=== PATIENT | male | born 1970 | race Caucasian/White ===

== ENCOUNTER 2020-11-27 11:20 | Emergency (ER) | payer SELFPAY ==
[2020-11-27] MEDS ORDERED: Sodium Chloride 0.9% 1,000 ML IV ONE (11:55)
[2020-11-27 12:39] LABS: BLOOD UREA NITROGEN,BUN 15 mg/dL (7.0-18.0); CARBON DIOXIDE,CO2 28.8 mmol/L (21.0-32.0); CHLORIDE,CL 96 mmol/L (98-107); GLUCOSE RANDOM 127 mg/dL (74-106); POTASSIUM,K 4.8 mmol/L (3.5-5.1); SODIUM,NA 135 mmol/L (136-148)
[2020-11-27] MEDS ORDERED: Iopamidol 755 MG/ML 500 ML Multipack Bottle IVPUSH STA (13:14)
--- NOTE | 2020-11-27 14:10 | CT ---
INDICATION: Hypoxia and tachycardia. Rule out pulmonary embolism. TECHNIQUE: Volumetric helical scanning of the thorax was performed during infusion of 100 cc of Isovue 370 contrast material IV, timing optimized for pulmonary arterial opacification. Coronal and sagittal reconstructions were obtained. COMPARISON: None. FINDINGS: The pulmonary arteries are less than optimally opacified. No central pulmonary arterial filling defect is identified. However, small peripheral emboli could go undetected. The heart size is normal. Bilateral ground-glass infiltrates, primarily in the periphery of the lungs, are demonstrated. No airway abnormality or pleural effusion is evident. There is no mediastinal or hilar lymphadenopathy. Images of the upper abdomen are unremarkable. IMPRESSION: 1. Suboptimal pulmonary arterial opacification. No central pulmonary embolus is identified. However, small peripheral emboli could go undetected. 2. Bilateral ground-glass infiltrates, primarily in the periphery of the lungs. The appearance is typical of COVID-19 pneumonia. Please note that all CT scans at this facility use dose modulation, iterative reconstruction, and/or weight-based dosing when appropriate to reduce radiation dose to as low as reasonably achievable. Dictated by Zion Jones MD @ 11/27/2020 2:09:05 PM (Electronically Signed)
--- NOTE | 2020-11-27 15:00 | EDM.PDOC ---
ED HPI GENERAL MEDICAL PROBLEM - General Chief Complaint: General Stated Complaint: FEVER LOW O2 FROM CLINIC Time Seen by Provider: 11/27/20 11:22 Source of Information: Reports: Patient History Limitations: Reports: No Limitations - History of Present Illness INITIAL COMMENTS - FREE TEXT/NARRATIVE: HISTORY AND PHYSICAL: History of present illness: Patient is a 50-year-old male who presents emergency room today from the clinic for concern of generalized body aches, intermittent fevers, cough, and fatigue. Patient states he is also had a decrease in appetite. Patient states he originally went to the walk-in clinic and was sent here because his oxygens were on the lower end. Patient states that he has noticed some sort of shortness of breath if he standing or walking around but does not complain of shortness of breath today in the emergency room. Patient denies any health history. Patient states that he is on day 13 of symptoms and states that when he first started having symptoms, he did have a negative Covid test. Patient states that his symptoms have continued to worsen despite this. Denies any other symptoms or concerns. Patient denies chest pain, shortness of breath. Denies headache, neck stiff ness, change in vision, syncope, or near syncope. Denies nausea, vomiting, abdominal pain, diarrhea, constipation, or dysuria. Has not noted any blood in u rine or stool. Review of systems: As per history of present illness and below otherwise all systems reviewed and negative. Past medical history: As per history of present illness and as reviewed below otherwise noncontributory. Surgical history: As per history of present illness and as reviewed below otherwise noncontributory. Social history: See social history for further information Family history: As per history of present illness and as reviewed below otherwise noncontributory. Physical exam: General: Patient is alert, oriented, and in no acute distress. Patient sitting comfortably on exam table. Patient is hypoxic 87 to 88% on room air. Otherwise, vitally stable and reviewed by me. HEENT: Atraumatic, normocephalic, pupils equal and reactive bilaterally, negative for conjunctival pallor or scleral icterus, mucous membranes moist, neck supple, nontender, trachea midline. No drooling or trismus noted. No meningeal signs. No hot potato voice noted. Lungs: Clear to auscultation, breath sounds equal bilaterally, chest nontender. Patient speaking clearly without breathlessness, no wheezing or stridor, no accessory muscle use or respiratory distress. Heart: S1S2, regular rate and rhythm without overt murmur Abdomen: Soft, nondistended, nontender. Negative for masses or hepatosplenomegaly. Negative for costovertebral tenderness. Pelvis: Stable nontender. Genitourinary: Deferred. Rectal: Deferred. Skin: Intact, warm, dry. No lesions or rashes noted. Extremities: Atraumatic, negative for cords or calf pain. Neurovascular unremarkable. Neuro: Awake, alert, oriented. Cranial nerves II through XII unremarkable. Cerebellum unremarkable. Motor and sensory unremarkable throughout. Exam nonfocal. Notes: Patient is a 50-year-old male who presents emergency room today with concern of fatigue, generalized body aches, intermittent fevers, and cough x13 days. Upon arrival to the ED, patient is approximately 87 to 88% on room air but otherwise breathing comfortably on exam. Patient was placed on 2 L nasal cannula and satting about 94 to 95%. Will obtain COVID-19 testing, cardiac evaluation, and angiography chest for concern of possible pulmonary embolism. See Dr. Diaz's dictation for specific EKG interpretation. However STEMI. CBC mild derangements are unremarkable. CMP does show mild hyponatremia at 135, hypochloremia 96. Glucose mildly elevated at 127. Patient does have transaminitis with AST of 229 and ALT at 348 troponin negative. Otherwise CMP mild derangements unremarkable. COVID-19 is positive. Angiography of chest is suboptimal but no central pulmonary embolism identified. Bilateral groundglass infiltrates, primarily in the periphery of the lungs. The appearance typical of COVID-19 pneumonia. Upon reevaluation of patient, he remains vitally stable on 2 L nasal cannula and otherwise comfortable throughout stay in ED. Given patient's hypoxia in the setting of COVID-19 viral infection, I did offer patient admission [facility]. However, patient desires trial about patient home oxygen. A prescription was sent for home oxygen to [facility] and patient has received this. Discussed with patient the importance of close monitoring of his oxygen at home with a pulse oximeter. Patient is out of the window to be able to receive IV monoclonal antibodies given he is on day 13 of infection. I did discuss with patient that given the hypoxia and COVID-19 infection, if he would be admitted to the hospital, he could have remdesivir consideration. However, he does not desire this medication at this time. Strict return precautions thoroughly discussed with patient. Discussed importance for follow-up with a primary care provider following COVID-19 quarantine restrictions. Voices understanding and is agreeable to plan of care. Denies any further questions or concerns at this time. Diagnostics: EKG, CBC, CMP, Trop, Ang CT chest, COVID, Ang CT Chest Therapeutics: 2LNC, NS Prescription: Home O2 Impression: COVID-19 viral infection with hypoxia Plan: 1. Your COVID-19 screening is positive. That means you do have the coronavirus and are considered contagious. Your oxygen is low today at 88% on room air. You have been offered admission to the hospital for oxygen but preferred to go home with at home oxygen. I would like you to purchase a pulse oximiter from the local store, [employer] or from the pharmacy to closely monitor your oxygen. I would like you to start at 2 liters of oxygen and closely monitor your oxygen as discussed and as shown when in the ED today. 2. Continue to monitor for trouble breathing, new confusion or inability to arouse, bluish lips or face or any of the other symptoms we discussed -if this occurs please return to the emergency room.Continue to monitor your health at [facility] for worsening symptoms so that you can be taken care of and treated quickly if needed. 3. Please self quarantine until 10 days have passed since your symptoms began AND you are fever free (<100.4 degrees fahrenheit) for 24 hours without the use of fever-reducing medications AND symptoms are improving. You should restrict activities outside of your home, except for getting medical care. Do not go to work, school, or public areas. Avoid using public transportation, ride-sharing, or taxis. Inform any persons that you have been in contact with since you started becoming symptomatic that you have tested positive; they should be made aware and take the appropriate steps as needed. 4. You may alternate Tylenol and ibuprofen as needed for pain and fever management. [facility]. [facility] calling you and following up with you. The [place] COVID 19 Hotline phone number , They are open Thursday - Thursday 7am - 7pm. Follow up with your primary care provider for re-evaluation and re-testing after quarantine and discuss when you should be seen. 6. For more specific guidelines regarding isolation/quarantine please visit this website. https://www.health.[place].gov/sites/w ww/files/documents/Files/EZEKIEL/coronavirus/Factsheet_for_People_With_COVID-19.pdf When you are discharged from the ED. Go straight to [employer] to receive oxygen supplies as discussed. Definitive disposition and diagnosis as appropriate pending reevaluation and review of above. - Related Data Allergies Allergy/AdvReac Type Severity Reaction Status Date / Time Pertussis Vaccines Allergy Anaphylactic Verified 11/27/20 11:41 Shock Home Meds: Home Meds . [No Known Home Meds] 11/27/20 [History] Past Medical History - Past Health History Medical/Surgical History: Denies Medical/Surgical History - Infectious Disease History Infectious Disease History: Reports: None Social & Family History - Family History Family Medical History: No Pertinent Family History - Tobacco Use Tobacco Use Status *Q: Never Tobacco User - Recreational Drug Use Recreational Drug Use: No ED ROS GENERAL - Review of Systems Review Of Systems: Comprehensive ROS is negative, except as noted in HPI. ED EXAM, GENERAL - Physical Exam Exam: See Below (see dictation) Course - Vital Signs Last Recorded V/S: Last Vital Signs Temp 99.8 F 11/27/20 11:37 Pulse 86 11/27/20 14:29 Resp 24 H 11/27/20 11:37 BP 154/93 H 11/27/20 14:29 Pulse Ox 98 11/27/20 14:29 - Orders/Labs/Meds Orders: Active Orders 24 hr Category Date Time Status Cardiac Monitoring [RC] . DIRECTED Care 11/27/20 11:55 Active Labs: Laboratory Tests 11/27/20 11/27/20 11/27/20 Range/Units 11:40 11:40 13:06 WBC 6.76 (4.0-11.0) K/uL RBC 4.84 (4.50-5.90) M/uL Hgb 14.4 (13.0-17.0) g/dL Hct 42.3 (38.0-50.0) % MCV 87.4 (80.0-98.0) fL MCH 29.8 (27.0-32.0) pg MCHC 34.0 (31.0-37.0) g/dL RDW Std Deviation 40.8 (28.0-62.0) fl RDW Coeff of Dante 13 (11.0-15.0) % Plt Count 316 (150-400) K/uL MPV 10.80 (7.40-12.00) fL Neut % (Auto) 82.2 H (48.0-80.0) % Lymph % (Auto) 7.8 L (16.0-40.0) % [place] % (Auto) 9.8 (0.0-15.0) % Eos % (Auto) 0.1 (0.0-7.0) % Baso % (Auto) 0.1 (0.0-1.5) % Neut # (Auto) 5.6 (1.4-5.7) K/uL Lymph # (Auto) 0.5 L (0.6-2.4) K/uL [place] # (Auto) 0.7 (0.0-0.8) K/uL Eos # (Auto) 0.0 (0.0-0.7) K/uL Baso # (Auto) 0.0 (0.0-0.1) K/uL Sodium 135 L (136-148) mmol/L Potassium 4.8 (3.5-5.1) mmol/L Chloride 96 L (98-107) mmol/L Carbon Dioxide 28.8 (21.0-32.0) mmol/L BUN 15 (7.0-18.0) mg/dL Creatinine 0.9 (0.8-1.3) mg/dL Est Cr Clr Drug Dosing 103.42 mL/min Estimated GFR (MDRD) > 60.0 ml/min Glucose 127 H (74-106) mg/dL Calcium 8.7 (8.5-10.1) mg/dL Total Bilirubin 0.7 (0.2-1.0) mg/dL AST 229 H (15-37) IU/L ALT 348 H (14-63) IU/L Alkaline Phosphatase 94 (46-116) U/L Troponin I < 0.050 (0.000-0.056) ng/mL Total Protein 6.9 (6.4-8.2) g/dL Albumin 2.7 L (3.4-5.0) g/dL Globulin 4.2 H (2.6-4.0) g/dL Albumin/Globulin Ratio 0.6 L (0.9-1.6) SARS-CoV-2 RNA (KARINA) POSITIVE H (NEGATIVE) Meds: Medications Discontinued Medications Generic Name Dose Route Start Last Admin Trade Name Nicolette PRN Reason Stop Dose Admin Sodium Chloride 1,000 mls @ 999 mls/hr 11/27/20 11:55 11/27/20 12:39 Normal Saline IV 11/27/20 12:55 999 mls/hr BOLUS ONE Administration Iopamidol 100 ml 11/27/20 13:14 11/27/20 13:14 Iopamidol 755 Mg/Ml 500 Ml Multipack Bottle IVPUSH 11/27/20 13:15 100 ml ONETIME STA Administration Departure - Departure Time of Disposition: 14:57 Disposition: Home, Self-Care 01 Clinical Impression: COVID-19 virus infection, Hypoxia - Discharge Information Instructions: Hypoxia, COVID-19 Frequently Asked Questions, COVID-19 Vaccine Information, COVID-19: How to Protect Yourself and Others - CDC, COVID-19: Quarantine vs. Isolation - [facility] (02/02/2020), COVID-19: What to Do If You Are Sick- [facility] (05/02/2020) Referrals: PCP,None [Primary Care Provider] - Forms: ED Department Discharge Additional Instructions: The following information is given to patients seen in the emergency department who are being discharged to home. This information is to outline your options for follow-up care. We provide all patients seen in our emergency department with a follow-up referral. The need for follow-up, as well as the timing and circumstances, are variable depending upon the specifics of your emergency department visit. If you don't have a primary care physician on staff, we will provide you with a referral. We always advise you to contact your personal physician following an emergency department visit to inform them of the circumstance of the visit and for follow-up with them and/or the need for any referrals to a consulting specialist. The emergency department will also refer you to a specialist when appropriate. This referral assures that you have the opportunity for follow-up care with a specialist. All of these measure are taken in an effort to provide you with optimal care, which includes your follow-up. Under all circumstances we always encourage you to contact your private physician who remains a resource for coordinating your care. When calling for follow-up care, please make the office aware that this follow-up is from your recent emergency room visit. If for any reason you are refused follow-up, please contact the [facility] Emergency Department at and asked to speak to the emergency department charge nurse. [facility] [address], [place] [address] [facility] [address] [place] [address] 1. Your COVID-19 screening is positive. That means you do have the coronavirus and are considered contagious. Your oxygen is low today at 88% on room air. You have been offered admission to the hospital for oxygen but preferred to go home with at home oxygen. I would like you to purchase a pulse oximiter from the local store, [employer]), or from the pharmacy to closely monitor your oxygen. I would like you to start at 2 liters of oxygen and closely monitor your oxygen as discussed and as shown when in the ED today. 2. Continue to monitor for trouble breathing, new confusion or inability to arouse, bluish lips or face or any of the other symptoms we discussed -if this occurs please return to the emergency room.Continue to monitor your health at home for worsening symptoms so that you can be taken care of and treated quickly if needed. 3. Please self quarantine until 10 days have passed since your symptoms began AND you are fever free (<100.4 degrees fahrenheit) for 24 hours without the use of fever-reducing medications AND symptoms are improving. You should restrict activities outside of your home, except for getting medical care. Do not go to work, school, or public areas. Avoid using public transportation, ride-sharing, or taxis. Inform any persons that you have been in contact with since you started becoming symptomatic that you have tested positive; they should be made aware and take the appropriate steps as needed. 4. You may alternate Tylenol and ibuprofen as needed for pain and fever management. 5. The state health department will be calling you and following up with you. The [place] COVID 19 Hotline phone number , They are open Thursday - Thursday 7am - 7pm. Follow up with your primary care provider for re-evaluation and re-testing after quarantine and discuss when you should be seen. 6. For more specific guidelines regarding isolation/quarantine please visit this website. https://www.[facility].[place].gov/sites/www/files/documents/Files/EZEKIEL/coronavirus/Factsheet_for_People_Wi _COVID-19.pdf When you are discharged from the ED. Go straight to [employer] to receive oxygen supplies as discussed. Sepsis Event Note (ED) - Focused Exam Vital Signs: Vital Signs Temp Pulse Resp BP Pulse Ox 11/27/20 14:29 86 154/93 H 98 11/27/20 11:37 99.8 F 102 H 24 H 134/84 95 - My Orders Last 24 Hours: My Active Orders 11/27/20 11:55 Cardiac Monitoring [RC] . DIRECTED - Assessment/Plan Last 24 Hours: My Active Orders 11/27/20 11:55 Cardiac Monitoring [RC] . DIRECTED
--- NOTE | 2020-11-27 16:23 | PCM.EKG ---
#1 Interpretation EKG Date: 11/27/20 Time: 12:52 Rhythm: NSR Rate (Beats/Min): 89 [place]: LAD-Left [place] Deviation P-Wave: Present QRS: Normal ST-T: Normal QT: Normal Comparison: NA - No Prior EKG EKG Interpretation Comments: Sinus Rhythm
== END 2020-11-27 16:50 | disposition home or self-care (01) ==
LOC: MW.ED 11:20
DX: U07.1 COVID-19 (principal); R09.02 Hypoxemia; Z88.7 Allergy status to serum and vaccine
CPT/HCPCS: 36415; 71275; 80053; 84484; 85025; 87635; 93005; 99285; J7030; Q9967; U0002

== ENCOUNTER 2020-12-01 18:50 | Emergency (ER) | payer SELFPAY ==
--- NOTE | 2020-12-01 19:31 | EDM.PDOC ---
ED HPI GENERAL MEDICAL PROBLEM - General Chief Complaint: Lower Extremity Injury/Pain Stated Complaint: POSSIBLE BLOOD CLOT LT LEG Time Seen by Provider: 12/01/20 19:14 - History of Present Illness INITIAL COMMENTS - FREE TEXT/NARRATIVE: HISTORY AND PHYSICAL: History of present illness: This a 50-year-old gentleman with a recent diagnosis of Covid with symptoms starting approximately 2 weeks ago who is currently on home oxygen for his coronavirus infection who presents ER today secondary to discomfort and swelling to his left lower extremity with discomfort to his calf. Patient denies any recent fevers, shakes, chills, nausea, vomiting, diarrhea, dysuria, frequency, urgency, chest pain or worsening shortness of breath. Patient denies any recent trauma. Patient reports that he has been somewhat sedentary ever since his diagnosis of coronavirus secondary to his shortness of breath. Patient denies any history of DVT or PE in the past. Review of systems: As per history of present illness and below otherwise all systems reviewed and negative. Past medical history: As per history of present illness and as reviewed below otherwise noncontributory. Surgical history: As per history of present illness and as reviewed below otherwise noncontributory. Social history: No reported history of drug abuse. Family history: As per history of present illness and as reviewed below otherwise noncontributory. Physical exam: This patient was seen and evaluated during the 2019 SARS-CoV-2 novel coronavirus pandemic period. Community viral transmission is ongoing at time of this encounter and the emergency department is operating under pandemic response procedures. Constitutional: Patient is oriented to person, place, and time. Appears well- developed and well-nourished. No distress. HEENT: Moist mucous membranes Head: Normocephalic and atraumatic Eyes: Right eye exhibits no discharge. Left eye exhibits no discharge. No scleral icterus Neck: Normal range of motion. No tracheal deviation present. Cardiovascular: Normal rate and regular rhythm. Pulmonary: Effort normal, no respiratory distress. Abdominal: No distention Musculoskeletal: Normal range of motion Neurologic: Alert and oriented to person, place and time. Skin: [place], warm and dry. Psychiatric: Normal mood and affect. Behavior is normal. Judgment and thought content normal. Nursing note and vital signs have been reviewed Patient's ER physical exam is significant for tenderness to palpation to his left calf as well as slight increase in swelling to his left calf compared to his right calf. Patient has good distal pulses with good capillary refill that are bilaterally equal. Diagnostics: Duplex ultrasound: Left lower extremity: Deep venous thrombosis extending through the posterior tibial vein in the calf superiorly to reach the mid femoral vein. Case was discussed with radiology. He reports that the patient has a complete occlusion of the posterior tibial vein in the calf and a nonocclusive clot in the popliteal to the mid superior femoral vein. Therapeutics: Xarelto 15 mg p.o. twice daily x3 weeks followed by 20 mg p.o. daily. Assessment and plan: There is a 50-year-old gentleman with a history significant for coronavirus who presents ER today secondary to pain and swelling to his left calf. Patient will have an ultrasound performed to rule out a DVT. Ultrasound reveals that the patient does have DVT that will be treated in the ED. Patient denies any rectal bleeding, melena, hematemesis, bleeding dyscrasias, bleeding from his gums. Patient's labs were reviewed from 3 days ago and he had does have a normal renal function. Patient does not have a primary care physician. Patient be referred to our residency clinic for evaluation of his Covid as well as his DVT. Patient was seen and evaluated here in the ED on Thursday and was discharged home with a diagnosis of Covid on home oxygen. Patient reports that has been doing well on home oxygen but has not had a primary care physician to assist him with weaning off or further management of his coronavirus. At this time, the patient also has developed a DVT which is likely secondary to coronavirus infection. Patient be placed on Xarelto 15 mg twice a day and a prescription has been sent for 3 weeks worse. Patient will need to make an appointment to see a primary care physician for further management of his DVT. We will send information to our clinic to assist with getting follow-up. Patient had CTA during his prior ER visit which revealed no evidence of pulmonary embolism. Definitive disposition and diagnosis as appropriate pending reevaluation and review of above. Left Lower Leg Pain Score (Numeric/FACES): 6 - Related Data Allergies Allergy/AdvReac Type Severity Reaction Status Date / Time Pertussis Vaccines Allergy Anaphylactic Verified 11/27/20 11:41 Shock Home Meds: Home Meds Rivaroxaban [Xarelto] 15 mg PO BID #42 tab 12/01/20 [Rx] Past Medical History - Past Health History Medical/Surgical History: Denies Medical/Surgical History - Infectious Disease History Infectious Disease History: Reports: None Social & Family History - Family History Family Medical History: No Pertinent Family History - Tobacco Use Tobacco Use Status *Q: Never Tobacco User Second Hand Smoke Exposure: No - Caffeine Use Caffeine Use: Reports: None - Recreational Drug Use Recreational Drug Use: No Review of Systems - Review of Systems Review Of Systems: See Below ED EXAM, GENERAL - Physical Exam Exam: See Below Course - Vital Signs Last Recorded V/S: Last Vital Signs Temp 98.5 F 12/01/20 19:14 Pulse 112 H 12/01/20 19:14 Resp 20 12/01/20 19:14 BP 105/75 12/01/20 19:14 Pulse Ox 95 12/01/20 19:14 - Orders/Labs/Meds Meds: Medications Discontinued Medications Generic Name Dose Route Start Last Admin Trade Name Freq PRN Reason Stop Dose Admin Rivaroxaban 15 mg 12/01/20 21:43 Rivaroxaban 15 Mg Tab PO 12/01/20 21:44 WITHDINNER STA Departure - Departure Time of Disposition: 22:09 Disposition: Home, Self-Care 01 Condition: Good Clinical Impression: COVID-19 virus infection DVT (deep venous thrombosis) Qualifiers: DVT location: lower extremity Affected thrombotic vein of extremity: femoral Chronicity: acute Laterality: left Qualified Code(s): I82.412 - Acute embolism and thrombosis of left femoral vein - Discharge Information Prescriptions: Rivaroxaban [Xarelto] 15 mg PO BID #42 tab Instructions: 10 Things You Can Do to Manage Your COVID-19 Symptoms at Home - [facility] (08/31/2020), Deep Vein Thrombosis, Rivaroxaban oral tablets Referrals: PCP,None [Primary Care Provider] - Forms: ED Department Discharge Additional Instructions: You were seen and evaluated in the ER today secondary swelling to your left leg. The ultrasound today did reveal that he had a blood clot in your tibial vein, popliteal vein, and mid superior femoral vein. You will be started on Xarelto which is a blood thinner. This will be 15 mg twice a day for 3 weeks. You will need to see a primary care physician so that they can continue your therapy and decide the duration that you will need. After the 3-week course you will need to be placed on 20 mg daily but this will need to be prescribed by your primary care physician. Please call the number below to make an appointment to see primary care physician. We will send your information to the clinic so that they will be expecting your phone call. The following information is given to patients seen in the emergency department who are being discharged to home. This information is to outline your options for follow-up care. We provide all patients seen in our emergency department with a follow-up referral. The need for follow-up, as well as the timing and circumstances, are variable depending upon the specifics of your emergency department visit. If you don't have a primary care physician on staff, we will provide you with a referral. We always advise you to contact your personal physician following an emergency department visit to inform them of the circumstance of the visit and for follow-up with them and/or the need for any referrals to a consulting specialist. The emergency department will also refer you to a specialist when appropriate. This referral assures that you have the opportunity for follow-up care with a specialist. All of these measure are taken in an effort to provide you with optimal care, which includes your follow-up. Under all circumstances we always encourage you to contact your private physician who remains a resource for coordinating your care. When calling for follow-up care, please make the office aware that this follow-up is from your recent emergency room visit. If for any reason you are refused follow-up, please contact the [facility] Emergency Department at and asked to speak to the emergency department charge nurse. [facility] [address] [place] [id number] [facility] [address] [place] [id number] Sepsis Event Note (ED) - Focused Exam Vital Signs: Vital Signs Temp Pulse Resp BP Pulse Ox 12/01/20 19:14 98.5 F 112 H 20 105/75 95
--- NOTE | 2020-12-01 21:42 | US ---
INDICATION: Left calf pain. COMPARISON: None available. FINDINGS: Ultrasound of the venous drainage of the left lower extremity was performed using real-time menjivar scale imaging (B mode 2D), color flow Doppler and spectral analysis. There is partially occlusive thrombus from the mid superior left femoral vein through the left popliteal vein. There is occlusive thrombus throughout the posterior tibial vein in the calf. There is no evidence of deep venous thrombosis more superiorly. There is normal antegrade flow from the superior femoral vein and the common femoral vein. There is normal augmentation and compressibility of these veins. IMPRESSION: Deep venous thrombosis extending through the posterior tibial vein in the calf superiorly to reach the mid femoral vein. The thrombus in the calf is occlusive while rest of the thrombus is nonocclusive. Dictated by Kingsley Chairez MD @ 12/01/2020 9:41:26 PM (Electronically Signed)
[2020-12-01] MEDS ORDERED: Rivaroxaban 15 MG Tab PO STA (21:43)
== END 2020-12-01 22:34 | disposition home or self-care (01) ==
LOC: MW.ED 18:50
DX: U07.1 COVID-19 (principal); I82.412 Acute embolism and thrombosis of left femoral vein; Z88.7 Allergy status to serum and vaccine; Z79.01 Long term (current) use of anticoagulants
CPT/HCPCS: 93971; 99283; A9270

== ENCOUNTER 2020-12-09 09:41 | Inpatient (IN) | payer SELFPAY ==
[2020-12-09] MEDS ORDERED: Sodium Chloride 0.9% 10 ML Syringe FLUSH PRN (10:15)
[2020-12-09] MEDS ORDERED: Sodium Chloride 0.9% 2.5 ML Syringe FLUSH PRN (10:15)
--- NOTE | 2020-12-09 10:20 | EDM.PDOC ---
ED HPI GENERAL MEDICAL PROBLEM - General Chief Complaint: General Stated Complaint: UNRESPONSIVE Time Seen by Provider: 12/09/20 10:03 - History of Present Illness INITIAL COMMENTS - FREE TEXT/NARRATIVE: 50-year-old male presents to the emergency department after near syncopal episode. Patient is sick with Covid on home oxygen at 3 L. He states he has been feeling better. He was at [employer] off oxygen was singing and sitting down and felt lightheaded. His significant other stated that he was somewhat unresponsive but still conscious. There is some questionable minor jerking of the head but not the rest of the body. No history of seizures. Patient also has blood clots in his legs and is taking Xarelto. There is no chest pain or worsening shortness of breath. Fevers have since abated. No exacerbating relieving factors otherwise. Patient vomited once and then felt better afterwards. - Related Data Allergies Allergy/AdvReac Type Severity Reaction Status Date / Time Pertussis Vaccines Allergy Anaphylactic Verified 12/09/20 10:06 Shock Home Meds: Home Meds Rivaroxaban [Xarelto] 15 mg PO BID #42 tab 12/01/20 [Rx] Cyproheptadine HCl 4 mg PO 12/09/20 [History] Hydroxychloroquine [Plaquenil] 200 mg PO 12/09/20 [History] Ivermectin 12/09/20 [History] fluvoxaMINE Maleate [Fluvoxamine Maleate] 50 mg PO 12/09/20 [History] predniSONE [Prednisone] 10 mg PO 12/09/20 [History] Past Medical History - Past Health History Medical/Surgical History: Denies Medical/Surgical History HEENT History: Reports: Impaired Vision Respiratory History: Reports: Other (See Below) Other Respiratory History: covid - Infectious Disease History Infectious Disease History: Reports: None Social & Family History - Family History Family Medical History: No Pertinent Family History - Caffeine Use Caffeine Use: Reports: None ED ROS GENERAL - Review of Systems Review Of Systems: Comprehensive ROS is negative, except as noted in HPI. ED EXAM, GENERAL - Physical Exam Exam: See Below Free Text/Narrative:: CONSTITUTIONAL: well appearing in no acute distress SKIN: Warm, dry, and intact without rash HENT: Normocephalic, atraumatic, PULMONARY: clear to ausculation bilaterally. No rales, rhonchi, wheezing CARDIOVASCULAR: regular rate, No murmur, rubs, or gallops GASTROINTESTINAL: soft, nondistended, nontender NEUROLOGIC: normal speech, II-XII intact. light touch/5/5 power equal and symmetric in upper and lower extremities without deficit MUSCULOSKELETAL: no gross deformities, atraumatic PSYCHIATRIC: normal mood and affect #1 Interpretation EKG Date: 12/09/20 Time: 10:18 EKG Interpretation Comments: 95, normal sinus rhythm, no definitive delta wave. The NV interval is normal. Patient does have a slightly prolonged QTc interval that is borderline at 494. Otherwise nonspecific ST/T findings. Course - Vital Signs Text/Narrative:: Differential diagnosis: Dysrhythmia, dehydration, anemia, PE, seizure, stroke, other Patient presents to the emergency department as outlined above. Patient has extensive bilateral pulmonary emboli. I spoke to interventional radiologist, Dr. Hunter, that I discussed the case with. He was able to review the images and we discussed the hemodynamics and troponin levels and radiographic findings of possible right heart strain and he stated that the patient would not be a interventional candidate at this time and recommends admission here for heparinization overnight in the ICU in addition the patient also had some minor QT prolongation is taking hydroxychloroquine and quercetin which could be possible contributing factors. Patient will be admitted and switched over to heparin as it is unclear without the patient broke through Xarelto or of the blood clots embolized from the legs to the lungs with overnight monitoring, reevaluation of medication regimen and continued treatment and management the setting of his Covid. Patient did take 30 mg of prednisone today and I discussed the hospitalist he can add additional steroids if he chooses. Last Recorded V/S: Last Vital Signs Temp 35.6 C L 12/09/20 09:46 Pulse 89 12/09/20 12:46 Resp 16 12/09/20 12:46 BP 108/78 12/09/20 12:46 Pulse Ox 98 12/09/20 12:46 - Orders/Labs/Meds Orders: Active Orders 24 hr Category Date Time Status Admission Status [Patient Status] [ADT] Stat ADT 12/09/20 12:48 Active Cardiac Monitoring [RC] . DIRECTED Care 12/09/20 10:15 Active Oxygen Therapy [RC] PRN Care 12/09/20 12:28 Active Pulse Oximetry [RC] ASDIRECTED Care 12/09/20 10:15 Active VTE/DVT Education [RC] PER UNIT ROUTINE Care 12/09/20 12:28 Active STREP A BY PCR [MOLEC] Stat Lab 12/09/20 13:01 Ordered Heparin Sodium/0.45% NaCl [Heparin 25,000 Units in 1/2 Med 12/09/20 12:30 Active NS 500 ML] 500 ml IV TITRATE Sodium Chloride 0.9% [Saline Flush] Med 12/09/20 10:15 Active 10 ml FLUSH ASDIRECTED PRN Sodium Chloride 0.9% [Saline Flush] Med 12/09/20 10:15 Active 2.5 ml FLUSH ASDIRECTED PRN Saline Lock Insert [OM.PC] Stat Oth 12/09/20 10:15 Ordered Medication Orders Heparin Sodium/Sodium Chloride (Heparin 25,000 Units In 1/2 Ns 500 Ml) 500 mls @ 38.16 mls/hr IV TITRATE ETHAN; Protocol Sodium Chloride (Sodium Chloride 0.9% 10 Ml Syringe) 10 ml FLUSH ASDIRECTED PRN PRN Reason: Keep Vein Open Last Admin: 12/09/20 11:33 Dose: 10 ml Documented by: LAVELL Sodium Chloride (Sodium Chloride 0.9% 2.5 Ml Syringe) 2.5 ml FLUSH ASDIRECTED PRN PRN Reason: Keep Vein Open Last Admin: 12/09/20 11:33 Dose: 2.5 ml Documented by: LAVELL Labs: Laboratory Tests 12/09/20 12/09/20 12/09/20 Range/Units 10:00 10:00 10:00 WBC 12.69 H (4.0-11.0) K/uL RBC 4.97 (4.50-5.90) M/uL Hgb 14.7 (13.0-17.0) g/dL Hct 44.0 (38.0-50.0) % MCV 88.5 (80.0-98.0) fL MCH 29.6 (27.0-32.0) pg MCHC 33.4 (31.0-37.0) g/dL RDW Std Deviation 42.2 (28.0-62.0) fl RDW Coeff of Dante 13 (11.0-15.0) % Plt Count 343 (150-400) K/uL MPV 10.30 (7.40-12.00) fL Neut % (Auto) 79.6 (48.0-80.0) % Lymph % (Auto) 13.4 L (16.0-40.0) % [place]once % (Auto) 5.7 (0.0-15.0) % Eos % (Auto) 0.9 (0.0-7.0) % Baso % (Auto) 0.4 (0.0-1.5) % Neut # (Auto) 10.1 H (1.4-5.7) K/uL Lymph # (Auto) 1.7 (0.6-2.4) K/uL Ponce # (Auto) 0.7 (0.0-0.8) K/uL Eos # (Auto) 0.1 (0.0-0.7) K/uL Baso # (Auto) 0.1 (0.0-0.1) K/uL Nucleated RBC % 0.0 /100WBC Nucleated RBCs # 0 K/uL INR 1.40 APTT (18.6-31.3) SEC Sodium 140 (136-148) mmol/L Potassium 3.9 (3.5-5.1) mmol/L Chloride 100 (98-107) mmol/L Carbon Dioxide 31.7 (21.0-32.0) mmol/L BUN 21 H (7.0-18.0) mg/dL Creatinine 1.0 (0.8-1.3) mg/dL Est Cr Clr Drug Dosing 93.08 mL/min Estimated GFR (MDRD) > 60.0 ml/min Glucose 192 H (74-106) mg/dL Calcium 8.9 (8.5-10.1) mg/dL Magnesium 2.6 H (1.8-2.4) mg/dL Total Bilirubin 0.4 (0.2-1.0) mg/dL AST 18 (15-37) IU/L ALT 108 H (14-63) IU/L Alkaline Phosphatase 64 (46-116) U/L Troponin I < 0.050 (0.000-0.056) ng/mL Total Protein 7.1 (6.4-8.2) g/dL Albumin 2.8 L (3.4-5.0) g/dL Globulin 4.3 H (2.6-4.0) g/dL Albumin/Globulin Ratio 0.7 L (0.9-1.6) Urine Color Urine Appearance Urine pH (5.0-8.0) Ur Specific [place] (1.001-1.035) Urine Protein (NEGATIVE) mg/dL Urine Glucose (UA) (NEGATIVE) mg/dL Urine Ketones (NEGATIVE) mg/dL Urine Occult Blood (NEGATIVE) Urine Nitrite (NEGATIVE) Urine Bilirubin (NEGATIVE) Urine Urobilinogen (<2.0) EU/dL Ur Leukocyte Esterase (NEGATIVE) 12/09/20 12/09/20 Range/Units 10:00 11:00 WBC (4.0-11.0) K/uL RBC (4.50-5.90) M/uL Hgb (13.0-17.0) g/dL Hct (38.0-50.0) % MCV (80.0-98.0) fL MCH (27.0-32.0) pg MCHC (31.0-37.0) g/dL RDW Std Deviation (28.0-62.0) fl RDW Coeff of Dante (11.0-15.0) % Plt Count (150-400) K/uL MPV (7.40-12.00) fL Neut % (Auto) (48.0-80.0) % Lymph % (Auto) (16.0-40.0) % [place] % (Auto) (0.0-15.0) % Eos % (Auto) (0.0-7.0) % Baso % (Auto) (0.0-1.5) % Neut # (Auto) (1.4-5.7) K/uL Lymph # (Auto) (0.6-2.4) K/uL [place] # (Auto) (0.0-0.8) K/uL Eos # (Auto) (0.0-0.7) K/uL Baso # (Auto) (0.0-0.1) K/uL Nucleated RBC % /100WBC Nucleated RBCs # K/uL INR APTT 38.5 H (18.6-31.3) SEC Sodium (136-148) mmol/L Potassium (3.5-5.1) mmol/L Chloride (98-107) mmol/L Carbon Dioxide (21.0-32.0) mmol/L BUN (7.0-18.0) mg/dL Creatinine (0.8-1.3) mg/dL Est Cr Clr Drug Dosing mL/min Estimated GFR (MDRD) ml/min Glucose (74-106) mg/dL Calcium (8.5-10.1) mg/dL Magnesium (1.8-2.4) mg/dL Total Bilirubin (0.2-1.0) mg/dL AST (15-37) IU/L ALT (14-63) IU/L Alkaline Phosphatase (46-116) U/L Troponin I (0.000-0.056) ng/mL Total Protein (6.4-8.2) g/dL Albumin (3.4-5.0) g/dL Globulin (2.6-4.0) g/dL Albumin/Globulin Ratio (0.9-1.6) Urine Color DARK YELLOW Urine Appearance CLEAR Urine pH 6.0 (5.0-8.0) Ur Specific [place] 1.025 (1.001-1.035) Urine Protein NEGATIVE (NEGATIVE) mg/dL Urine Glucose (UA) NEGATIVE (NEGATIVE) mg/dL Urine Ketones NEGATIVE (NEGATIVE) mg/dL Urine Occult Blood NEGATIVE (NEGATIVE) Urine Nitrite NEGATIVE (NEGATIVE) Urine Bilirubin NEGATIVE (NEGATIVE) Urine Urobilinogen 0.2 (<2.0) EU/dL Ur Leukocyte Esterase NEGATIVE (NEGATIVE) Meds: Medications Generic Name Dose Route Start Last Admin Trade Name Freq PRN Reason Stop Dose Admin Heparin Sodium/Sodium Chloride 500 mls @ 38.16 mls/hr 12/09/20 12:30 Heparin 25,000 Units In 1/2 Ns 500 Ml IV TITRATE ETHAN Protocol 18 UNITS/KG/HR Sodium Chloride 10 ml 12/09/20 10:15 12/09/20 11:33 Sodium Chloride 0.9% 10 Ml Syringe FLUSH 10 ml ASDIRECTED PRN Administration Keep Vein Open Sodium Chloride 2.5 ml 12/09/20 10:15 12/09/20 11:33 Sodium Chloride 0.9% 2.5 Ml Syringe FLUSH 2.5 ml ASDIRECTED PRN Administration Keep Vein Open Discontinued Medications Generic Name Dose Route Start Last Admin Trade Name Freq PRN Reason Stop Dose Admin Heparin Sodium (Porcine) 5,000 units 12/09/20 12:28 Heparin Sodium 5,000 Units/Ml Vial IVPUSH 12/09/20 12:29 .BOLUS ONE Iopamidol 100 ml 12/09/20 12:54 12/09/20 12:56 Iopamidol 755 Mg/Ml 500 Ml Multipack Bottle IVPUSH 12/09/20 12:55 100 ml ONETIME ONE Administration Departure - Departure Time of Disposition: 13:09 Disposition: Admitted As Inpatient 65 Condition: Fair Clinical Impression: COVID-19 virus infection, Pulmonary embolism - Discharge Information Referrals: Evelyne Loaiza MD [Primary Care Provider] - Forms: ED Department Discharge Sepsis Event Note (ED) - Evaluation Sepsis Screening Result: No Definite Risk - Focused Exam Vital Signs: Vital Signs Temp Pulse Resp BP Pulse Ox Pulse Ox 12/09/20 12:46 89 16 108/78 98 12/09/20 12:28 98 12/09/20 11:13 86 16 111/77 96 12/09/20 10:34 90 100/73 95 12/09/20 09:46 35.6 C L 96 17 110/70 92 L - My Orders Last 24 Hours: My Active Orders 12/09/20 10:15 Cardiac Monitoring [RC] . DIRECTED Pulse Oximetry [RC] ASDIRECTED Sodium Chloride 0.9% [Saline Flush] 10 ml FLUSH ASDIRECTED PRN Sodium Chloride 0.9% [Saline Flush] 2.5 ml FLUSH ASDIRECTED PRN Saline Lock Insert [OM.PC] Stat 12/09/20 12:28 Oxygen Therapy [RC] PRN VTE/DVT Education [RC] PER UNIT ROUTINE 12/09/20 12:30 Heparin Sodium/0.45% NaCl [Heparin 25,000 Units in 1/2 NS 500 ML] 500 ml IV TITRATE 12/09/20 12:48 Admission Status [Patient Status] [ADT] Stat 12/09/20 13:01 STREP A BY PCR [MOLEC] Stat - Assessment/Plan Last 24 Hours: My Active Orders 12/09/20 10:15 Cardiac Monitoring [RC] . DIRECTED Pulse Oximetry [RC] ASDIRECTED Sodium Chloride 0.9% [Saline Flush] 10 ml FLUSH ASDIRECTED PRN Sodium Chloride 0.9% [Saline Flush] 2.5 ml FLUSH ASDIRECTED PRN Saline Lock Insert [OM.PC] Stat 12/09/20 12:28 Oxygen Therapy [RC] PRN VTE/DVT Education [RC] PER UNIT ROUTINE 12/09/20 12:30 Heparin Sodium/0.45% NaCl [Heparin 25,000 Units in 1/2 NS 500 ML] 500 ml IV TITRATE 12/09/20 12:48 Admission Status [Patient Status] [ADT] Stat 12/09/20 13:01 STREP A BY PCR [MOLEC] Stat
[2020-12-09 10:36] LABS: BLOOD UREA NITROGEN,BUN 21 mg/dL (7.0-18.0); CARBON DIOXIDE,CO2 31.7 mmol/L (21.0-32.0); CHLORIDE,CL 100 mmol/L (98-107); GLUCOSE RANDOM 192 mg/dL (74-106); POTASSIUM,K 3.9 mmol/L (3.5-5.1); SODIUM,NA 140 mmol/L (136-148)
--- NOTE | 2020-12-09 11:56 | CT ---
INDICATION: Seizure. TECHNIQUE: Multiple axial images were obtained through the brain without contrast. Sagittal and coronal re-formatted images were obtained. COMPARISON: None. FINDINGS: The ventricles and sulci are within normal limits. There is no mass effect or midline shift. There is no intracranial hemorrhage. The menjivar-white matter differentiation is unremarkable. There is no fracture seen on bone windows. IMPRESSION: No acute intracranial abnormality. Please note that all CT scans at this facility use dose modulation, iterative reconstruction, and/or weight-based dosing when appropriate to reduce radiation dose to as low as reasonably achievable. Dictated by Zion George MD @ 12/09/2020 11:55:41 AM (Electronically Signed)
--- NOTE | 2020-12-09 12:14 | CT ---
INDICATION: Shortness of breath. TECHNIQUE: Multiple axial images were obtained from the apices to the diaphragm per the pulmonary artery embolism protocol after administration of 100 mL of Isovue-370 intravenously. Sagittal and coronal re-formatted images were obtained. COMPARISON: 11/27/2020. FINDINGS: There are continued bilateral airspace opacities slightly improved from the previous CT scan. There is no pleural effusion. There is no axillary, mediastinal or hilar adenopathy. There are new extensive bilateral pulmonary emboli seen. This is seen in the left pulmonary at the bifurcation of the left upper and lower lobe pulmonary arteries with emboli extending into the left lower lobe pulmonary arteries. There is also an embolism seen extending into a left upper lobe pulmonary artery. There is an embolism in the right lobe pulmonary artery extending into peripheral branches. There is also an embolism see in a right upper lobe pulmonary artery posteriorly. There is evidence of right heart strain with a right ventricle to left ventricle ratio measuring 1.04. There are degenerative changes in the spine. IMPRESSION: Extensive bilateral pulmonary artery emboli most pronounced in the lower lobe pulmonary arteries but are seen in upper lobe pulmonary arteries new from the previous CT scan. Evidence of right heart strain. Continued opacities in the lungs bilaterally which could be secondary to a COVID-19 infection. This is slightly improved from the previous study. Report was called to Dr. Holm on 12/09/2020 at 1206 hours. Please note that all CT scans at this facility use dose modulation, iterative reconstruction, and/or weight-based dosing when appropriate to reduce radiation dose to as low as reasonably achievable. Dictated by Zion George MD @ 12/09/2020 12:13:04 PM (Electronically Signed)
[2020-12-09] MEDS ORDERED: Heparin Sodium 5,000 Units/ML Vial IVPUSH ONE (12:28)
[2020-12-09] MEDS ORDERED: Iopamidol 755 MG/ML 500 ML Multipack Bottle IVPUSH ONE (12:54)
[2020-12-09] MEDS ORDERED: REMDESIVIR 200 MG in Sodium Chloride 0.9% 250 ML IV ONE (13:06)
[2020-12-09] MEDS: Heparin Sodium/0.45% NaCl 500 ML IV SCH (13:39)
[2020-12-09 13:53] LABS: BLOOD UREA NITROGEN,BUN 18 mg/dL (7.0-18.0); CARBON DIOXIDE,CO2 30.3 mmol/L (21.0-32.0); CHLORIDE,CL 100 mmol/L (98-107); GLUCOSE RANDOM 219 mg/dL (74-106); POTASSIUM,K 4.5 mmol/L (3.5-5.1); SODIUM,NA 138 mmol/L (136-148)
--- NOTE | 2020-12-09 14:07 | PCM.HP.2 ---
H&P History of Present Illness - General Date of Service: 12/09/20 Admit Problem/Dx: Admission Diagnosis/Problem Admission Diagnosis/Problem PE, Pulmonary embolism - History of Present Illness Initial Comments - Free Text/Narative: 50 yo male with pmh of COVID and left DVT. Patient developed COVID symptoms of cough, fevers, and fatigue on November 16. He was diagnosed with COVID on November 27 during an ER visit and had CT scan of chest reporting bilateral opacities and no PE. He was offered admission and treatment with remdsivir but patient declined and went home on oxygen. He developed left calf pain and was diagnosed with DVT on 12/02/11. He was started on Xarelto. From a doctor in [place] he got prescriptions for Ivermectin, hydroxychloroquine, cyproheptadine, prednisone, fluvoxamine and other supplements. Today at [facility] he became lighthead and slow to respond. He was off his oxygen and his sats were low. He was brought to the ED and was found to have extensive bilateral PEs on CT scan of chest. Bilateral opacities on CT chest appear to be improving compared to prior CT. Patient started on Heparin drip in ED and has again refused remdesivir. - Related Data Allergies/Adverse Reactions: Allergies Allergy/AdvReac Type Severity Reaction Status Date / Time Pertussis Vaccines Allergy Anaphylactic Verified 12/09/20 10:06 Shock Home Medications: Home Meds Rivaroxaban [Xarelto] 15 mg PO BID #42 tab 12/01/20 [Rx] Cyproheptadine HCl 4 mg PO 12/09/20 [History] Hydroxychloroquine [Plaquenil] 200 mg PO 12/09/20 [History] Ivermectin 12/09/20 [History] fluvoxaMINE Maleate [Fluvoxamine Maleate] 50 mg PO 12/09/20 [History] predniSONE [Prednisone] 10 mg PO 12/09/20 [History] Past Medical History - Past Health History Medical/Surgical History: Denies Medical/Surgical History HEENT History: Reports: Impaired Vision Respiratory History: Reports: Other (See Below) Other Respiratory History: covid Other Endocrine/Metabolic History: pt stated he is "borderline diabetic" and manages with diet - Infectious Disease History Infectious Disease History: Reports: None Social & Family History - Family History Family Medical History: No Pertinent Family History - Caffeine Use Caffeine Use: Reports: None H&P Review of Systems - Review of Systems: Review Of Systems: Comprehensive ROS is negative, except as noted in HPI. Exam - Exam Exam: See Below - Vital Signs Vital Signs: Last Vital Signs Temp 35.6 C L 12/09/20 09:46 Pulse 89 12/09/20 12:46 Resp 16 12/09/20 12:46 BP 108/78 12/09/20 12:46 Pulse Ox 98 12/09/20 12:46 Weight: 106 kg - Exam General: Alert, Oriented HEENT: Mucosa Moist & [place] Neck: Supple Lungs: Clear to Auscultation, Normal Respiratory Effort Cardiovascular: Regular Rate, Regular Rhythm GI/Abdominal Exam: Normal Bowel Sounds, Soft, Non-Tender Extremities: Non-Tender, No Pedal Edema Skin: Warm, Dry, Intact - Patient Data Lab Results Last 24 hrs: Laboratory Results - last 24 hr 12/09/20 12/09/20 12/09/20 Range/Units 10:00 10:00 10:00 WBC 12.69 H (4.0-11.0) K/uL RBC 4.97 (4.50-5.90) M/uL Hgb 14.7 (13.0-17.0) g/dL Hct 44.0 (38.0-50.0) % MCV 88.5 (80.0-98.0) fL MCH 29.6 (27.0-32.0) pg MCHC 33.4 (31.0-37.0) g/dL RDW Std Deviation 42.2 (28.0-62.0) fl RDW Coeff of Dante 13 (11.0-15.0) % Plt Count 343 (150-400) K/uL MPV 10.30 (7.40-12.00) fL Neut % (Auto) 79.6 (48.0-80.0) % Lymph % (Auto) 13.4 L (16.0-40.0) % Millard % (Auto) 5.7 (0.0-15.0) % Eos % (Auto) 0.9 (0.0-7.0) % Baso % (Auto) 0.4 (0.0-1.5) % Neut # (Auto) 10.1 H (1.4-5.7) K/uL Lymph # (Auto) 1.7 (0.6-2.4) K/uL Millard # (Auto) 0.7 (0.0-0.8) K/uL Eos # (Auto) 0.1 (0.0-0.7) K/uL Baso # (Auto) 0.1 (0.0-0.1) K/uL Nucleated RBC % 0.0 /100WBC Nucleated RBCs # 0 K/uL INR 1.40 APTT (18.6-31.3) SEC Sodium 140 (136-148) mmol/L Potassium 3.9 (3.5-5.1) mmol/L Chloride 100 (98-107) mmol/L Carbon Dioxide 31.7 (21.0-32.0) mmol/L BUN 21 H (7.0-18.0) mg/dL Creatinine 1.0 (0.8-1.3) mg/dL Est Cr Clr Drug Dosing 93.08 mL/min Estimated GFR (MDRD) > 60.0 ml/min Glucose 192 H (74-106) mg/dL Calcium 8.9 (8.5-10.1) mg/dL Magnesium 2.6 H (1.8-2.4) mg/dL Total Bilirubin 0.4 (0.2-1.0) mg/dL Direct Bilirubin (0.0-0.5) mg/dL AST 18 (15-37) IU/L ALT 108 H (14-63) IU/L Alkaline Phosphatase 64 (46-116) U/L Troponin I < 0.050 (0.000-0.056) ng/mL C-Reactive Protein (0.00-0.90) mg/dL Total Protein 7.1 (6.4-8.2) g/dL Albumin 2.8 L (3.4-5.0) g/dL Globulin 4.3 H (2.6-4.0) g/dL Albumin/Globulin Ratio 0.7 L (0.9-1.6) Urine Color Urine Appearance Urine pH (5.0-8.0) Ur Specific [place] (1.001-1.035) Urine Protein (NEGATIVE) mg/dL Urine Glucose (UA) (NEGATIVE) mg/dL Urine Ketones (NEGATIVE) mg/dL Urine Occult Blood (NEGATIVE) Urine Nitrite (NEGATIVE) Urine Bilirubin (NEGATIVE) Urine Urobilinogen (<2.0) EU/dL Ur Leukocyte Esterase (NEGATIVE) 12/09/20 12/09/20 12/09/20 Range/Units 10:00 11:00 13:19 WBC (4.0-11.0) K/uL RBC (4.50-5.90) M/uL Hgb (13.0-17.0) g/dL Hct (38.0-50.0) % MCV (80.0-98.0) fL MCH (27.0-32.0) pg MCHC (31.0-37.0) g/dL RDW Std Deviation (28.0-62.0) fl RDW Coeff of Dante (11.0-15.0) % Plt Count (150-400) K/uL MPV (7.40-12.00) fL Neut % (Auto) (48.0-80.0) % Lymph % (Auto) (16.0-40.0) % Millard % (Auto) (0.0-15.0) % Eos % (Auto) (0.0-7.0) % Baso % (Auto) (0.0-1.5) % Neut # (Auto) (1.4-5.7) K/uL Lymph # (Auto) (0.6-2.4) K/uL Millard # (Auto) (0.0-0.8) K/uL Eos # (Auto) (0.0-0.7) K/uL Baso # (Auto) (0.0-0.1) K/uL Nucleated RBC % /100WBC Nucleated RBCs # K/uL INR APTT 38.5 H (18.6-31.3) SEC Sodium 138 (136-148) mmol/L Potassium 4.5 (3.5-5.1) mmol/L Chloride 100 (98-107) mmol/L Carbon Dioxide 30.3 (21.0-32.0) mmol/L BUN 18 (7.0-18.0) mg/dL Creatinine 0.9 (0.8-1.3) mg/dL Est Cr Clr Drug Dosing 103.42 mL/min Estimated GFR (MDRD) > 60.0 ml/min Glucose 219 H (74-106) mg/dL Calcium 9.3 (8.5-10.1) mg/dL Magnesium (1.8-2.4) mg/dL Total Bilirubin 0.4 (0.2-1.0) mg/dL Direct Bilirubin 0.10 (0.0-0.5) mg/dL AST 24 (15-37) IU/L ALT 110 H (14-63) IU/L Alkaline Phosphatase 63 (46-116) U/L Troponin I (0.000-0.056) ng/mL C-Reactive Protein (0.00-0.90) mg/dL Total Protein 7.3 (6.4-8.2) g/dL Albumin 3.0 L (3.4-5.0) g/dL Globulin 4.3 H (2.6-4.0) g/dL Albumin/Globulin Ratio 0.7 L (0.9-1.6) Urine Color DARK YELLOW Urine Appearance CLEAR Urine pH 6.0 (5.0-8.0) Ur Specific [place] 1.025 (1.001-1.035) Urine Protein NEGATIVE (NEGATIVE) mg/dL Urine Glucose (UA) NEGATIVE (NEGATIVE) mg/dL Urine Ketones NEGATIVE (NEGATIVE) mg/dL Urine Occult Blood NEGATIVE (NEGATIVE) Urine Nitrite NEGATIVE (NEGATIVE) Urine Bilirubin NEGATIVE (NEGATIVE) Urine Urobilinogen 0.2 (<2.0) EU/dL Ur Leukocyte Esterase NEGATIVE (NEGATIVE) 12/09/20 Range/Units 13:19 WBC (4.0-11.0) K/uL RBC (4.50-5.90) M/uL Hgb (13.0-17.0) g/dL Hct (38.0-50.0) % MCV (80.0-98.0) fL MCH (27.0-32.0) pg MCHC (31.0-37.0) g/dL RDW Std Deviation (28.0-62.0) fl RDW Coeff of Dante (11.0-15.0) % Plt Count (150-400) K/uL MPV (7.40-12.00) fL Neut % (Auto) (48.0-80.0) % Lymph % (Auto) (16.0-40.0) % Millard % (Auto) (0.0-15.0) % Eos % (Auto) (0.0-7.0) % Baso % (Auto) (0.0-1.5) % Neut # (Auto) (1.4-5.7) K/uL Lymph # (Auto) (0.6-2.4) K/uL Millard # (Auto) (0.0-0.8) K/uL Eos # (Auto) (0.0-0.7) K/uL Baso # (Auto) (0.0-0.1) K/uL Nucleated RBC % /100WBC Nucleated RBCs # K/uL INR APTT (18.6-31.3) SEC Sodium (136-148) mmol/L Potassium (3.5-5.1) mmol/L Chloride (98-107) mmol/L Carbon Dioxide (21.0-32.0) mmol/L BUN (7.0-18.0) mg/dL Creatinine (0.8-1.3) mg/dL Est Cr Clr Drug Dosing mL/min Estimated GFR (MDRD) ml/min Glucose (74-106) mg/dL Calcium (8.5-10.1) mg/dL Magnesium (1.8-2.4) mg/dL Total Bilirubin (0.2-1.0) mg/dL Direct Bilirubin (0.0-0.5) mg/dL AST (15-37) IU/L ALT (14-63) IU/L Alkaline Phosphatase (46-116) U/L Troponin I (0.000-0.056) ng/mL C-Reactive Protein 1.50 H (0.00-0.90) mg/dL Total Protein (6.4-8.2) g/dL Albumin (3.4-5.0) g/dL Globulin (2.6-4.0) g/dL Albumin/Globulin Ratio (0.9-1.6) Urine Color Urine Appearance Urine pH (5.0-8.0) Ur Specific [place] (1.001-1.035) Urine Protein (NEGATIVE) mg/dL Urine Glucose (UA) (NEGATIVE) mg/dL Urine Ketones (NEGATIVE) mg/dL Urine Occult Blood (NEGATIVE) Urine Nitrite (NEGATIVE) Urine Bilirubin (NEGATIVE) Urine Urobilinogen (<2.0) EU/dL Ur Leukocyte Esterase (NEGATIVE) Result Diagrams: 12/09/20 10:00 12/09/20 13:19 Sepsis Event Note - Evaluation Sepsis Screening Result: No Definite Risk - Focused Exam Vital Signs: Vital Signs Temp Pulse Resp BP Pulse Ox Pulse Ox 12/09/20 12:46 89 16 108/78 98 12/09/20 12:28 98 12/09/20 11:13 86 16 111/77 96 12/09/20 10:34 90 100/73 95 12/09/20 09:46 35.6 C L 96 17 110/70 92 L - Problem List (1) COVID-19 virus infection SNOMED Code(s): 058083527 ICD Code: U07.1 - COVID-19 Status: Acute Current Visit: Yes (2) Pulmonary embolism SNOMED Code(s): 62748606 ICD Code: I26.99 - OTHER PULMONARY EMBOLISM WITHOUT ACUTE COR PULMONALE Status: Acute Current Visit: Yes (3) DVT (deep venous thrombosis) SNOMED Code(s): 118942048 ICD Code: I82.409 - ACUTE EMBOLISM AND THOMBOS UNSP DEEP VN UNSP LOWER EXTREMITY Status: Acute Current Visit: Yes Qualifiers: DVT location: lower extremity Affected thrombotic vein of extremity: femoral Chronicity: acute Laterality: left Qualified Code(s): I82.412 - Acute embolism and thrombosis of left femoral vein (4) Hypoxia SNOMED Code(s): 987457056 ICD Code: R09.02 - HYPOXEMIA Status: Acute Current Visit: Yes Problem List Initiated/Reviewed/Updated: Yes Orders Last 24hrs: Active Orders 24 hr Category Date Time Status Admission Status [Patient Status] [ADT] Stat ADT 12/09/20 12:48 Active Cardiac Monitoring [RC] . DIRECTED Care 12/09/20 10:15 Active Oxygen Therapy [RC] PRN Care 12/09/20 12:28 Active Oxygen Therapy [RC] PRN Care 12/09/20 14:05 Ordered Pulse Oximetry [RC] ASDIRECTED Care 12/09/20 10:15 Active VTE/DVT Education [RC] PER UNIT ROUTINE Care 12/09/20 12:28 Active VTE/DVT Education [RC] PER UNIT ROUTINE Care 12/09/20 14:05 Ordered Vital Signs [RC] Q4H Care 12/09/20 14:05 Ordered Regular Diet [DIET] Diet 12/09/20 Breakfast Ordered CBC W/O DIFF,HEMOGRAM [HEME] AM Lab 12/10/20 05:11 Ordered COMPREHENSIVE METABOLIC PN,CMP [CHEM] AM Lab 12/10/20 05:11 Ordered STREP A BY PCR [MOLEC] Stat Lab 12/09/20 Ordered Heparin Sodium/0.45% NaCl [Heparin 25,000 Units in 1/2 Med 12/09/20 12:30 Active NS 500 ML] 500 ml IV TITRATE Sodium Chloride 0.9% [Saline Flush] Med 12/09/20 10:15 Active 10 ml FLUSH ASDIRECTED PRN Sodium Chloride 0.9% [Saline Flush] Med 12/09/20 10:15 Active 2.5 ml FLUSH ASDIRECTED PRN Saline Lock Insert [OM.PC] Stat Oth 12/09/20 10:15 Ordered Resuscitation Status Routine Resus Stat 12/09/20 14:05 Ordered Medication Orders Heparin Sodium/Sodium Chloride (Heparin 25,000 Units In 1/2 Ns 500 Ml) 500 mls @ 38.16 mls/hr IV TITRATE ETHAN; Protocol Last Admin: 12/09/20 13:39 Dose: 18 units/kg/hr, 38.16 mls/hr Documented by: LAVELL Cosigned by: [id number] Sodium Chloride (Sodium Chloride 0.9% 10 Ml Syringe) 10 ml FLUSH ASDIRECTED PRN PRN Reason: Keep Vein Open Last Admin: 12/09/20 11:33 Dose: 10 ml Documented by: LAVELL Sodium Chloride (Sodium Chloride 0.9% 2.5 Ml Syringe) 2.5 ml FLUSH ASDIRECTED PRN PRN Reason: Keep Vein Open Last Admin: 12/09/20 11:33 Dose: 2.5 ml Documented by: LAVELL Assessment/Plan Comment:: 50 yo male with recent COVID infection admitted for PE after failing Xarelto PE: heparin drip, will monitor in ICU COVID: will continue steroid therapy with dexamethasone, did discuss lack of evidence of benefit for the medications he has been taking for COVID and the potential for harm due to the prolonged qt on EKG. Patient is understanding but is hoping to resume his home medications when possible. will start protonix.
[2020-12-09] MEDS: Pantoprazole 40 MG Tab.CR PO SCH (14:30)
[2020-12-09] MEDS: Dexamethasone 4 MG Tab PO SCH (14:30)
--- NOTE | 2020-12-09 18:03 | PN ---
THC Physician - Brief Progress [id number]/24/2021 17:21[facility] Maylin Carroll, [place] - MWN [facility] - MWN SERG DOMINGUEZ, HEIDYID+Date of Service 12/09/2020 17:21HPI /Events of Note eICU Admission NotePt is a 50 yo M who presented to the ED s/p a syncopal event while at [facility] off his prescribed O2 for COVID. PMH is largely negative other than recent COVID infection and new DVT. Pt was COVID positive on 11/27 after having symptoms at home since 11/13 and having a ne gative test 11/15. He was treating himself at home with Hydroxychloriquine & Ivermectin after declinin g Remdesivir. He was otherwise also being treated with O2 via NC and Prednisone from the ED. He devel oped a L) LE DVT on 12/01 and was furthermore placed on Xaralto. In the ED he was found to have exten sive B/L PE's with hypoxia and was placed on a Heparin gtt and O2 via NC. He has declined Remdesivir again, but was willing to initiate Dexamethasone. He is currently sitting up in bed in NAD with stabl e VS on O2 via NC at 1L. Case was discussed with his nurse Opal. eICU Recommendations:1) Continue He morena gtt with transition to OAC when able2) May consider thrombectomy as an option at OSH if clot bu rden causing significant R) heart strain3) Goal SpO2 of > 90% with O2 via NC4) Check 2D Echo to [facility] evaluate clot burden on heart5) Maintain Dexamethasone as the only COVID therapy pt is willing to trial, however may not have much benefit at this point unless active wheezing6) GI prophylaxis on padilla roids7) controlThank you for allowing us to participate in the care of your patient.Interventions Major-Hypoxemia - evaluation and management, Infection - evaluation and [id number]-Dwez-i ractice therapies (e.g. VTE, beta caprice, etc.), Communication with other healthcare providers and/o r family
[2020-12-10] MEDS: Heparin Sodium/0.45% NaCl 500 ML IV SCH (05:33)
[2020-12-10 06:57] LABS: BLOOD UREA NITROGEN,BUN 14 mg/dL (7.0-18.0); CARBON DIOXIDE,CO2 29.1 mmol/L (21.0-32.0); CHLORIDE,CL 101 mmol/L (98-107); GLUCOSE RANDOM 207 mg/dL (74-106); POTASSIUM,K 4.4 mmol/L (3.5-5.1); SODIUM,NA 137 mmol/L (136-148)
[2020-12-10] MEDS: Pantoprazole 40 MG Tab.CR PO SCH (08:25)
[2020-12-10] MEDS ORDERED: Lactated Ringers 1,000 ML IV ONE (08:43)
--- NOTE | 2020-12-10 08:46 | PCM.PN ---
<Koki Padilla - Last Filed: 12/10/20 10:38> - General Info Date of Service: 12/10/20 Admission Dx/Problem (Free Text): Admission Diagnosis/Problem Admission Diagnosis/Problem PE, Pulmonary embolism Subjective Update: 50-year-old male who presented to the ED after having a syncopal event while at [employer], off of his prescribed oxygen for Covid. Patient recently diagnosed with Covid and a new DVT. Covid positive on 11/27 after having symptoms since Monday 11/13. Patient was treating himself at home with hydroxychloroquine and ivermectin after declining remdesivir. He was also on oxygen via nasal cannula and prednisone which he received from the ER after refusing hospital admission. Patient developed left lower extremity DVT on 12/01 and was placed on Xarelto. In the ER on 12/09 patient was found to have extensive bilateral pulmonary embolisms with hypoxia and placed on a heparin drip. Patient refused remdesivir. Started on dexamethasone. Patient seen at bedside this morning with his present. Patient feels he is doing better and denies chest pain, palpitations, difficulty breathing. Patient is currently on a heparin drip. Patient is currently on 3 L nasal cannula. - Review of Systems General: Denies: Fever, Chills HEENT: Denies: Headaches Pulmonary: Denies: Shortness of Breath, Pleuritic Chest Pain, Cough, Sputum, Hemoptysis Cardiovascular: Denies: Chest Pain, Palpitations, Edema, Lightheadedness Gastrointestinal: Denies: Abdominal Pain, Constipation, Diarrhea, Nausea, Vomiting Genitourinary: Denies: Dysuria Musculoskeletal: Denies: Leg Pain Skin: Denies: Cyanosis Neurological: Denies: Confusion, Dizziness, Headache, Numbness, Paresthesia - Patient Data Vitals - Most Recent: Last Vital Signs Temp 97.7 F 12/10/20 07:00 Pulse 89 12/09/20 12:46 Resp 24 H 12/10/20 08:00 BP 133/88 12/10/20 08:00 Pulse Ox 93 L 12/10/20 08:00 Weight - Most Recent: 105.097 kg I&O - Last 24 Hours: Intake & Output 12/09/20 12/10/20 12/10/20 22:59 06:59 14:59 Intake Total 1430 Output Total 625 Balance 805 Lab Results Last 24 Hours: Laboratory Results - last 24 hr 12/09/20 12/09/20 12/09/20 Range/Units 10:00 10:00 10:00 WBC 12.69 H (4.0-11.0) K/uL RBC 4.97 (4.50-5.90) M/uL Hgb 14.7 (13.0-17.0) g/dL Hct 44.0 (38.0-50.0) % MCV 88.5 (80.0-98.0) fL MCH 29.6 (27.0-32.0) pg MCHC 33.4 (31.0-37.0) g/dL RDW Std Deviation 42.2 (28.0-62.0) fl RDW Coeff of Dante 13 (11.0-15.0) % Plt Count 343 (150-400) K/uL MPV 10.30 (7.40-12.00) fL Neut % (Auto) 79.6 (48.0-80.0) % Lymph % (Auto) 13.4 L (16.0-40.0) % [place] % (Auto) 5.7 (0.0-15.0) % Eos % (Auto) 0.9 (0.0-7.0) % Baso % (Auto) 0.4 (0.0-1.5) % Neut # (Auto) 10.1 H (1.4-5.7) K/uL Lymph # (Auto) 1.7 (0.6-2.4) K/uL [place] # (Auto) 0.7 (0.0-0.8) K/uL Eos # (Auto) 0.1 (0.0-0.7) K/uL Baso # (Auto) 0.1 (0.0-0.1) K/uL Nucleated RBC % 0.0 /100WBC Nucleated RBCs # 0 K/uL INR 1.40 APTT (18.6-31.3) SEC Sodium 140 (136-148) mmol/L Potassium 3.9 (3.5-5.1) mmol/L Chloride 100 (98-107) mmol/L Carbon Dioxide 31.7 (21.0-32.0) mmol/L BUN 21 H (7.0-18.0) mg/dL Creatinine 1.0 (0.8-1.3) mg/dL Est Cr Clr Drug Dosing 93.08 mL/min Estimated GFR (MDRD) > 60.0 ml/min Glucose 192 H (74-106) mg/dL Calcium 8.9 (8.5-10.1) mg/dL Magnesium 2.6 H (1.8-2.4) mg/dL Total Bilirubin 0.4 (0.2-1.0) mg/dL Direct Bilirubin (0.0-0.5) mg/dL AST 18 (15-37) IU/L ALT 108 H (14-63) IU/L Alkaline Phosphatase 64 (46-116) U/L Troponin I < 0.050 (0.000-0.056) ng/mL C-Reactive Protein (0.00-0.90) mg/dL Total Protein 7.1 (6.4-8.2) g/dL Albumin 2.8 L (3.4-5.0) g/dL Globulin 4.3 H (2.6-4.0) g/dL Albumin/Globulin Ratio 0.7 L (0.9-1.6) Urine Color Urine Appearance Urine pH (5.0-8.0) Ur Specific Currie (1.001-1.035) Urine Protein (NEGATIVE) mg/dL Urine Glucose (UA) (NEGATIVE) mg/dL Urine Ketones (NEGATIVE) mg/dL Urine Occult Blood (NEGATIVE) Urine Nitrite (NEGATIVE) Urine Bilirubin (NEGATIVE) Urine Urobilinogen (<2.0) EU/dL Ur Leukocyte Esterase (NEGATIVE) SARS-CoV-2 RNA (KARINA) (NEGATIVE) 12/09/20 12/09/20 12/09/20 Range/Units 10:00 11:00 13:19 WBC (4.0-11.0) K/uL RBC (4.50-5.90) M/uL Hgb (13.0-17.0) g/dL Hct (38.0-50.0) % MCV (80.0-98.0) fL MCH (27.0-32.0) pg MCHC (31.0-37.0) g/dL RDW Std Deviation (28.0-62.0) fl RDW Coeff of Dante (11.0-15.0) % Plt Count (150-400) K/uL MPV (7.40-12.00) fL Neut % (Auto) (48.0-80.0) % Lymph % (Auto) (16.0-40.0) % [place] % (Auto) (0.0-15.0) % Eos % (Auto) (0.0-7.0) % Baso % (Auto) (0.0-1.5) % Neut # (Auto) (1.4-5.7) K/uL Lymph # (Auto) (0.6-2.4) K/uL [place] # (Auto) (0.0-0.8) K/uL Eos # (Auto) (0.0-0.7) K/uL Baso # (Auto) (0.0-0.1) K/uL Nucleated RBC % /100WBC Nucleated RBCs # K/uL INR APTT 38.5 H (18.6-31.3) SEC Sodium 138 (136-148) mmol/L Potassium 4.5 (3.5-5.1) mmol/L Chloride 100 (98-107) mmol/L Carbon Dioxide 30.3 (21.0-32.0) mmol/L BUN 18 (7.0-18.0) mg/dL Creatinine 0.9 (0.8-1.3) mg/dL Est Cr Clr Drug Dosing 103.42 mL/min Estimated GFR (MDRD) > 60.0 ml/min Glucose 219 H (74-106) mg/dL Calcium 9.3 (8.5-10.1) mg/dL Magnesium (1.8-2.4) mg/dL Total Bilirubin 0.4 (0.2-1.0) mg/dL Direct Bilirubin 0.10 (0.0-0.5) mg/dL AST 24 (15-37) IU/L ALT 110 H (14-63) IU/L Alkaline Phosphatase 63 (46-116) U/L Troponin I (0.000-0.056) ng/mL C-Reactive Protein (0.00-0.90) mg/dL Total Protein 7.3 (6.4-8.2) g/dL Albumin 3.0 L (3.4-5.0) g/dL Globulin 4.3 H (2.6-4.0) g/dL Albumin/Globulin Ratio 0.7 L (0.9-1.6) Urine Color DARK YELLOW Urine Appearance CLEAR Urine pH 6.0 (5.0-8.0) Ur Specific Currie 1.025 (1.001-1.035) Urine Protein NEGATIVE (NEGATIVE) mg/dL Urine Glucose (UA) NEGATIVE (NEGATIVE) mg/dL Urine Ketones NEGATIVE (NEGATIVE) mg/dL Urine Occult Blood NEGATIVE (NEGATIVE) Urine Nitrite NEGATIVE (NEGATIVE) Urine Bilirubin NEGATIVE (NEGATIVE) Urine Urobilinogen 0.2 (<2.0) EU/dL Ur Leukocyte Esterase NEGATIVE (NEGATIVE) SARS-CoV-2 RNA (KARINA) (NEGATIVE) 12/09/20 12/09/20 12/09/20 Range/Units 13:19 14:17 17:31 WBC (4.0-11.0) K/uL RBC (4.50-5.90) M/uL Hgb (13.0-17.0) g/dL Hct (38.0-50.0) % MCV (80.0-98.0) fL MCH (27.0-32.0) pg MCHC (31.0-37.0) g/dL RDW Std Deviation (28.0-62.0) fl RDW Coeff of Dante (11.0-15.0) % Plt Count (150-400) K/uL MPV (7.40-12.00) fL Neut % (Auto) (48.0-80.0) % Lymph % (Auto) (16.0-40.0) % [place] % (Auto) (0.0-15.0) % Eos % (Auto) (0.0-7.0) % Baso % (Auto) (0.0-1.5) % Neut # (Auto) (1.4-5.7) K/uL Lymph # (Auto) (0.6-2.4) K/uL [place] # (Auto) (0.0-0.8) K/uL Eos # (Auto) (0.0-0.7) K/uL Baso # (Auto) (0.0-0.1) K/uL Nucleated RBC % /100WBC Nucleated RBCs # K/uL INR APTT 101.8 H (18.6-31.3) SEC Sodium (136-148) mmol/L Potassium (3.5-5.1) mmol/L Chloride (98-107) mmol/L Carbon Dioxide (21.0-32.0) mmol/L BUN (7.0-18.0) mg/dL Creatinine (0.8-1.3) mg/dL Est Cr Clr Drug Dosing mL/min Estimated GFR (MDRD) ml/min Glucose (74-106) mg/dL Calcium (8.5-10.1) mg/dL Magnesium (1.8-2.4) mg/dL Total Bilirubin (0.2-1.0) mg/dL Direct Bilirubin (0.0-0.5) mg/dL AST (15-37) IU/L ALT (14-63) IU/L Alkaline Phosphatase (46-116) U/L Troponin I (0.000-0.056) ng/mL C-Reactive Protein 1.50 H (0.00-0.90) mg/dL Total Protein (6.4-8.2) g/dL Albumin (3.4-5.0) g/dL Globulin (2.6-4.0) g/dL Albumin/Globulin Ratio (0.9-1.6) Urine Color Urine Appearance Urine pH (5.0-8.0) Ur Specific Currie (1.001-1.035) Urine Protein (NEGATIVE) mg/dL Urine Glucose (UA) (NEGATIVE) mg/dL Urine Ketones (NEGATIVE) mg/dL Urine Occult Blood (NEGATIVE) Urine Nitrite (NEGATIVE) Urine Bilirubin (NEGATIVE) Urine Urobilinogen (<2.0) EU/dL Ur Leukocyte Esterase (NEGATIVE) SARS-CoV-2 RNA (KARINA) NEGATIVE (NEGATIVE) 12/09/20 12/10/20 12/10/20 Range/Units 23:35 05:30 05:30 WBC 13.89 H (4.0-11.0) K/uL RBC 4.77 (4.50-5.90) M/uL Hgb 14.0 (13.0-17.0) g/dL Hct 41.7 (38.0-50.0) % MCV 87.4 (80.0-98.0) fL MCH 29.4 (27.0-32.0) pg MCHC 33.6 (31.0-37.0) g/dL RDW Std Deviation 41.4 (28.0-62.0) fl RDW Coeff of Dante 13 (11.0-15.0) % Plt Count 306 (150-400) K/uL MPV 10.70 (7.40-12.00) fL Neut % (Auto) (48.0-80.0) % Lymph % (Auto) (16.0-40.0) % [place] % (Auto) (0.0-15.0) % Eos % (Auto) (0.0-7.0) % Baso % (Auto) (0.0-1.5) % Neut # (Auto) (1.4-5.7) K/uL Lymph # (Auto) (0.6-2.4) K/uL [place] # (Auto) (0.0-0.8) K/uL Eos # (Auto) (0.0-0.7) K/uL Baso # (Auto) (0.0-0.1) K/uL Nucleated RBC % 0.0 /100WBC Nucleated RBCs # 0 K/uL INR APTT 53.7 H (18.6-31.3) SEC Sodium 137 (136-148) mmol/L Potassium 4.4 (3.5-5.1) mmol/L Chloride 101 (98-107) mmol/L Carbon Dioxide 29.1 (21.0-32.0) mmol/L BUN 14 (7.0-18.0) mg/dL Creatinine 0.9 (0.8-1.3) mg/dL Est Cr Clr Drug Dosing 103.42 mL/min Estimated GFR (MDRD) > 60.0 ml/min Glucose 207 H (74-106) mg/dL Calcium 8.8 (8.5-10.1) mg/dL Magnesium (1.8-2.4) mg/dL Total Bilirubin 0.4 (0.2-1.0) mg/dL Direct Bilirubin (0.0-0.5) mg/dL AST 18 (15-37) IU/L ALT 91 H (14-63) IU/L Alkaline Phosphatase 64 (46-116) U/L Troponin I (0.000-0.056) ng/mL C-Reactive Protein (0.00-0.90) mg/dL Total Protein 6.9 (6.4-8.2) g/dL Albumin 2.7 L (3.4-5.0) g/dL Globulin 4.2 H (2.6-4.0) g/dL Albumin/Globulin Ratio 0.6 L (0.9-1.6) Urine Color Urine Appearance Urine pH (5.0-8.0) Ur Specific [place]rie (1.001-1.035) Urine Protein (NEGATIVE) mg/dL Urine Glucose (UA) (NEGATIVE) mg/dL Urine Ketones (NEGATIVE) mg/dL Urine Occult Blood (NEGATIVE) Urine Nitrite (NEGATIVE) Urine Bilirubin (NEGATIVE) Urine Urobilinogen (<2.0) EU/dL Ur Leukocyte Esterase (NEGATIVE) SARS-CoV-2 RNA (KARINA) (NEGATIVE) 12/10/20 Range/Units 05:30 WBC (4.0-11.0) K/uL RBC (4.50-5.90) M/uL Hgb (13.0-17.0) g/dL Hct (38.0-50.0) % MCV (80.0-98.0) fL MCH (27.0-32.0) pg MCHC (31.0-37.0) g/dL RDW Std Deviation (28.0-62.0) fl RDW Coeff of Dante (11.0-15.0) % Plt Count (150-400) K/uL MPV (7.40-12.00) fL Neut % (Auto) (48.0-80.0) % Lymph % (Auto) (16.0-40.0) % [place] % (Auto) (0.0-15.0) % Eos % (Auto) (0.0-7.0) % Baso % (Auto) (0.0-1.5) % Neut # (Auto) (1.4-5.7) K/uL Lymph # (Auto) (0.6-2.4) K/uL [place] # (Auto) (0.0-0.8) K/uL Eos # (Auto) (0.0-0.7) K/uL Baso # (Auto) (0.0-0.1) K/uL Nucleated RBC % /100WBC Nucleated RBCs # K/uL INR APTT 53.7 H (18.6-31.3) SEC Sodium (136-148) mmol/L Potassium (3.5-5.1) mmol/L Chloride (98-107) mmol/L Carbon Dioxide (21.0-32.0) mmol/L BUN (7.0-18.0) mg/dL Creatinine (0.8-1.3) mg/dL Est Cr Clr Drug Dosing mL/min Estimated GFR (MDRD) ml/min Glucose (74-106) mg/dL Calcium (8.5-10.1) mg/dL Magnesium (1.8-2.4) mg/dL Total Bilirubin (0.2-1.0) mg/dL Direct Bilirubin (0.0-0.5) mg/dL AST (15-37) IU/L ALT (14-63) IU/L Alkaline Phosphatase (46-116) U/L Troponin I (0.000-0.056) ng/mL C-Reactive Protein (0.00-0.90) mg/dL Total Protein (6.4-8.2) g/dL Albumin (3.4-5.0) g/dL Globulin (2.6-4.0) g/dL Albumin/Globulin Ratio (0.9-1.6) Urine Color Urine Appearance Urine pH (5.0-8.0) Ur Specific [place]rie (1.001-1.035) Urine Protein (NEGATIVE) mg/dL Urine Glucose (UA) (NEGATIVE) mg/dL Urine Ketones (NEGATIVE) mg/dL Urine Occult Blood (NEGATIVE) Urine Nitrite (NEGATIVE) Urine Bilirubin (NEGATIVE) Urine Urobilinogen (<2.0) EU/dL Ur Leukocyte Esterase (NEGATIVE) SARS-CoV-2 RNA (KARINA) (NEGATIVE) Med Orders - Current: Current Medications Dexamethasone (Dexamethasone 4 Mg Tab) 6 mg PO Q24H ETHAN Last Admin: 12/09/20 14:30 Dose: 6 mg Documented by: Heparin Sodium/Sodium Chloride (Heparin 25,000 Units In 1/2 Ns 500 Ml) 500 mls @ 38.16 mls/hr IV TITRATE ETHAN; Protocol Last Admin: 12/10/20 05:33 Dose: 15 units/kg/hr, 31.8 mls/hr Documented by: Lactated Ringer's (Ringers, Lactated) 1,000 mls @ 999 mls/hr IV .BOLUS ONE Stop: 12/10/20 09:43 Pantoprazole Sodium (Pantoprazole 40 Mg Tab.Cr) 40 mg PO DAILY ETHAN Last Admin: 12/10/20 08:25 Dose: 40 mg Documented by: Sodium Chloride (Sodium Chloride 0.9% 10 Ml Syringe) 10 ml FLUSH ASDIRECTED PRN PRN Reason: Keep Vein Open Last Admin: 12/09/20 11:33 Dose: 10 ml Documented by: Sodium Chloride (Sodium Chloride 0.9% 2.5 Ml Syringe) 2.5 ml FLUSH ASDIRECTED PRN PRN Reason: Keep Vein Open Last Admin: 12/09/20 11:33 Dose: 2.5 ml Documented by: Discontinued Medications Heparin Sodium (Porcine) (Heparin Sodium 5,000 Units/Ml Vial) 5,000 units IVPUSH .BOLUS ONE Stop: 12/09/20 12:29 Last Admin: 12/09/20 13:08 Dose: 5,000 units Documented by: Remdesivir 200 mg/ Sodium (Chloride) 250 mls @ 250 mls/hr IV ONETIME ONE Stop: 12/09/20 13:07 Last Admin: 12/09/20 13:43 Dose: Not Given Documented by: Iopamidol (Iopamidol 755 Mg/Ml 500 Ml Multipack Bottle) 100 ml IVPUSH ONETIME ONE Stop: 12/09/20 12:55 Last Admin: 12/09/20 12:56 Dose: 100 ml Documented by: - Exam Quality Assessment: Supplemental Oxygen General: Alert, Oriented, Cooperative, No Acute Distress HEENT: Pupils Equal, Pupils Reactive Neck: Supple, Trachea Midline Lungs: Clear to Auscultation, Normal Respiratory Effort Cardiovascular: Regular Rate, Regular Rhythm, No Murmurs GI/Abdominal Exam: Normal Bowel Sounds, Soft, Non-Tender Back Exam: Normal Inspection, Full Range of Motion. No: CVA Tenderness (L), CVA Tenderness (R) Extremities: Normal Inspection, Normal Range of Motion, Non-Tender, No Pedal Edema. No: Leg Pain Peripheral Pulses: 2+: Dorsalis Pedis (L), Dorsalis Pedis (R) Skin: Warm, Dry, Intact Neurological: No New Focal Deficit - Patient Data Lab Results Last 24 hrs: Laboratory Results - last 24 hr 12/09/20 12/09/20 12/09/20 Range/Units 10:00 10:00 10:00 WBC 12.69 H (4.0-11.0) K/uL RBC 4.97 (4.50-5.90) M/uL Hgb 14.7 (13.0-17.0) g/dL Hct 44.0 (38.0-50.0) % MCV 88.5 (80.0-98.0) fL MCH 29.6 (27.0-32.0) pg MCHC 33.4 (31.0-37.0) g/dL RDW Std Deviation 42.2 (28.0-62.0) fl RDW Coeff of Dante 13 (11.0-15.0) % Plt Count 343 (150-400) K/uL MPV 10.30 (7.40-12.00) fL Neut % (Auto) 79.6 (48.0-80.0) % Lymph % (Auto) 13.4 L (16.0-40.0) % [place] % (Auto) 5.7 (0.0-15.0) % Eos % (Auto) 0.9 (0.0-7.0) % Baso % (Auto) 0.4 (0.0-1.5) % Neut # (Auto) 10.1 H (1.4-5.7) K/uL Lymph # (Auto) 1.7 (0.6-2.4) K/uL [place] # (Auto) 0.7 (0.0-0.8) K/uL Eos # (Auto) 0.1 (0.0-0.7) K/uL Baso # (Auto) 0.1 (0.0-0.1) K/uL Nucleated RBC % 0.0 /100WBC Nucleated RBCs # 0 K/uL INR 1.40 APTT (18.6-31.3) SEC Sodium 140 (136-148) mmol/L Potassium 3.9 (3.5-5.1) mmol/L Chloride 100 (98-107) mmol/L Carbon Dioxide 31.7 (21.0-32.0) mmol/L BUN 21 H (7.0-18.0) mg/dL Creatinine 1.0 (0.8-1.3) mg/dL Est Cr Clr Drug Dosing 93.08 mL/min Estimated GFR (MDRD) > 60.0 ml/min Glucose 192 H (74-106) mg/dL Calcium 8.9 (8.5-10.1) mg/dL Magnesium 2.6 H (1.8-2.4) mg/dL Total Bilirubin 0.4 (0.2-1.0) mg/dL Direct Bilirubin (0.0-0.5) mg/dL AST 18 (15-37) IU/L ALT 108 H (14-63) IU/L Alkaline Phosphatase 64 (46-116) U/L Troponin I < 0.050 (0.000-0.056) ng/mL C-Reactive Protein (0.00-0.90) mg/dL Total Protein 7.1 (6.4-8.2) g/dL Albumin 2.8 L (3.4-5.0) g/dL Globulin 4.3 H (2.6-4.0) g/dL Albumin/Globulin Ratio 0.7 L (0.9-1.6) Urine Color Urine Appearance Urine pH (5.0-8.0) Ur Specific Currie (1.001-1.035) Urine Protein (NEGATIVE) mg/dL Urine Glucose (UA) (NEGATIVE) mg/dL Urine Ketones (NEGATIVE) mg/dL Urine Occult Blood (NEGATIVE) Urine Nitrite (NEGATIVE) Urine Bilirubin (NEGATIVE) Urine Urobilinogen (<2.0) EU/dL Ur Leukocyte Esterase (NEGATIVE) SARS-CoV-2 RNA (KARINA) (NEGATIVE) 12/09/20 12/09/20 12/09/20 Range/Units 10:00 11:00 13:19 WBC (4.0-11.0) K/uL RBC (4.50-5.90) M/uL Hgb (13.0-17.0) g/dL Hct (38.0-50.0) % MCV (80.0-98.0) fL MCH (27.0-32.0) pg MCHC (31.0-37.0) g/dL RDW Std Deviation (28.0-62.0) fl RDW Coeff of Dante (11.0-15.0) % Plt Count (150-400) K/uL MPV (7.40-12.00) fL Neut % (Auto) (48.0-80.0) % Lymph % (Auto) (16.0-40.0) % [place] % (Auto) (0.0-15.0) % Eos % (Auto) (0.0-7.0) % Baso % (Auto) (0.0-1.5) % Neut # (Auto) (1.4-5.7) K/uL Lymph # (Auto) (0.6-2.4) K/uL [place] # (Auto) (0.0-0.8) K/uL Eos # (Auto) (0.0-0.7) K/uL Baso # (Auto) (0.0-0.1) K/uL Nucleated RBC % /100WBC Nucleated RBCs # K/uL INR APTT 38.5 H (18.6-31.3) SEC Sodium 138 (136-148) mmol/L Potassium 4.5 (3.5-5.1) mmol/L Chloride 100 (98-107) mmol/L Carbon Dioxide 30.3 (21.0-32.0) mmol/L BUN 18 (7.0-18.0) mg/dL Creatinine 0.9 (0.8-1.3) mg/dL Est Cr Clr Drug Dosing 103.42 mL/min Estimated GFR (MDRD) > 60.0 ml/min Glucose 219 H (74-106) mg/dL Calcium 9.3 (8.5-10.1) mg/dL Magnesium (1.8-2.4) mg/dL Total Bilirubin 0.4 (0.2-1.0) mg/dL Direct Bilirubin 0.10 (0.0-0.5) mg/dL AST 24 (15-37) IU/L ALT 110 H (14-63) IU/L Alkaline Phosphatase 63 (46-116) U/L Troponin I (0.000-0.056) ng/mL C-Reactive Protein (0.00-0.90) mg/dL Total Protein 7.3 (6.4-8.2) g/dL Albumin 3.0 L (3.4-5.0) g/dL Globulin 4.3 H (2.6-4.0) g/dL Albumin/Globulin Ratio 0.7 L (0.9-1.6) Urine Color DARK YELLOW Urine Appearance CLEAR Urine pH 6.0 (5.0-8.0) Ur Specific Currie 1.025 (1.001-1.035) Urine Protein NEGATIVE (NEGATIVE) mg/dL Urine Glucose (UA) NEGATIVE (NEGATIVE) mg/dL Urine Ketones NEGATIVE (NEGATIVE) mg/dL Urine Occult Blood NEGATIVE (NEGATIVE) Urine Nitrite NEGATIVE (NEGATIVE) Urine Bilirubin NEGATIVE (NEGATIVE) Urine Urobilinogen 0.2 (<2.0) EU/dL Ur Leukocyte Esterase NEGATIVE (NEGATIVE) SARS-CoV-2 RNA (KARINA) (NEGATIVE) 12/09/20 12/09/20 12/09/20 Range/Units 13:19 14:17 17:31 WBC (4.0-11.0) K/uL RBC (4.50-5.90) M/uL Hgb (13.0-17.0) g/dL Hct (38.0-50.0) % MCV (80.0-98.0) fL MCH (27.0-32.0) pg MCHC (31.0-37.0) g/dL RDW Std Deviation (28.0-62.0) fl RDW Coeff of Dante (11.0-15.0) % Plt Count (150-400) K/uL MPV (7.40-12.00) fL Neut % (Auto) (48.0-80.0) % Lymph % (Auto) (16.0-40.0) % [place] % (Auto) (0.0-15.0) % Eos % (Auto) (0.0-7.0) % Baso % (Auto) (0.0-1.5) % Neut # (Auto) (1.4-5.7) K/uL Lymph # (Auto) (0.6-2.4) K/uL [place] # (Auto) (0.0-0.8) K/uL Eos # (Auto) (0.0-0.7) K/uL Baso # (Auto) (0.0-0.1) K/uL Nucleated RBC % /100WBC Nucleated RBCs # K/uL INR APTT 101.8 H (18.6-31.3) SEC Sodium (136-148) mmol/L Potassium (3.5-5.1) mmol/L Chloride (98-107) mmol/L Carbon Dioxide (21.0-32.0) mmol/L BUN (7.0-18.0) mg/dL Creatinine (0.8-1.3) mg/dL Est Cr Clr Drug Dosing mL/min Estimated GFR (MDRD) ml/min Glucose (74-106) mg/dL Calcium (8.5-10.1) mg/dL Magnesium (1.8-2.4) mg/dL Total Bilirubin (0.2-1.0) mg/dL Direct Bilirubin (0.0-0.5) mg/dL AST (15-37) IU/L ALT (14-63) IU/L Alkaline Phosphatase (46-116) U/L Troponin I (0.000-0.056) ng/mL C-Reactive Protein 1.50 H (0.00-0.90) mg/dL Total Protein (6.4-8.2) g/dL Albumin (3.4-5.0) g/dL Globulin (2.6-4.0) g/dL Albumin/Globulin Ratio (0.9-1.6) Urine Color Urine Appearance Urine pH (5.0-8.0) Ur Specific Currie (1.001-1.035) Urine Protein (NEGATIVE) mg/dL Urine Glucose (UA) (NEGATIVE) mg/dL Urine Ketones (NEGATIVE) mg/dL Urine Occult Blood (NEGATIVE) Urine Nitrite (NEGATIVE) Urine Bilirubin (NEGATIVE) Urine Urobilinogen (<2.0) EU/dL Ur Leukocyte Esterase (NEGATIVE) SARS-CoV-2 RNA (KARINA) NEGATIVE (NEGATIVE) 12/09/20 12/10/20 12/10/20 Range/Units 23:35 05:30 05:30 WBC 13.89 H (4.0-11.0) K/uL RBC 4.77 (4.50-5.90) M/uL Hgb 14.0 (13.0-17.0) g/dL Hct 41.7 (38.0-50.0) % MCV 87.4 (80.0-98.0) fL MCH 29.4 (27.0-32.0) pg MCHC 33.6 (31.0-37.0) g/dL RDW Std Deviation 41.4 (28.0-62.0) fl RDW Coeff of Dante 13 (11.0-15.0) % Plt Count 306 (150-400) K/uL MPV 10.70 (7.40-12.00) fL Neut % (Auto) (48.0-80.0) % Lymph % (Auto) (16.0-40.0) % [place] % (Auto) (0.0-15.0) % Eos % (Auto) (0.0-7.0) % Baso % (Auto) (0.0-1.5) % Neut # (Auto) (1.4-5.7) K/uL Lymph # (Auto) (0.6-2.4) K/uL [place] # (Auto) (0.0-0.8) K/uL Eos # (Auto) (0.0-0.7) K/uL Baso # (Auto) (0.0-0.1) K/uL Nucleated RBC % 0.0 /100WBC Nucleated RBCs # 0 K/uL INR APTT 53.7 H (18.6-31.3) SEC Sodium 137 (136-148) mmol/L Potassium 4.4 (3.5-5.1) mmol/L Chloride 101 (98-107) mmol/L Carbon Dioxide 29.1 (21.0-32.0) mmol/L BUN 14 (7.0-18.0) mg/dL Creatinine 0.9 (0.8-1.3) mg/dL Est Cr Clr Drug Dosing 103.42 mL/min Estimated GFR (MDRD) > 60.0 ml/min Glucose 207 H (74-106) mg/dL Calcium 8.8 (8.5-10.1) mg/dL Magnesium (1.8-2.4) mg/dL Total Bilirubin 0.4 (0.2-1.0) mg/dL Direct Bilirubin (0.0-0.5) mg/dL AST 18 (15-37) IU/L ALT 91 H (14-63) IU/L Alkaline Phosphatase 64 (46-116) U/L Troponin I (0.000-0.056) ng/mL C-Reactive Protein (0.00-0.90) mg/dL Total Protein 6.9 (6.4-8.2) g/dL Albumin 2.7 L (3.4-5.0) g/dL Globulin 4.2 H (2.6-4.0) g/dL Albumin/Globulin Ratio 0.6 L (0.9-1.6) Urine Color Urine Appearance Urine pH (5.0-8.0) Ur Specific Currie (1.001-1.035) Urine Protein (NEGATIVE) mg/dL Urine Glucose (UA) (NEGATIVE) mg/dL Urine Ketones (NEGATIVE) mg/dL Urine Occult Blood (NEGATIVE) Urine Nitrite (NEGATIVE) Urine Bilirubin (NEGATIVE) Urine Urobilinogen (<2.0) EU/dL Ur Leukocyte Esterase (NEGATIVE) SARS-CoV-2 RNA (KARINA) (NEGATIVE) 12/10/20 Range/Units 05:30 WBC (4.0-11.0) K/uL RBC (4.50-5.90) M/uL Hgb (13.0-17.0) g/dL Hct (38.0-50.0) % MCV (80.0-98.0) fL MCH (27.0-32.0) pg MCHC (31.0-37.0) g/dL RDW Std Deviation (28.0-62.0) fl RDW Coeff of Dante (11.0-15.0) % Plt Count (150-400) K/uL MPV (7.40-12.00) fL Neut % (Auto) (48.0-80.0) % Lymph % (Auto) (16.0-40.0) % [place] % (Auto) (0.0-15.0) % Eos % (Auto) (0.0-7.0) % Baso % (Auto) (0.0-1.5) % Neut # (Auto) (1.4-5.7) K/uL Lymph # (Auto) (0.6-2.4) K/uL [place] # (Auto) (0.0-0.8) K/uL Eos # (Auto) (0.0-0.7) K/uL Baso # (Auto) (0.0-0.1) K/uL Nucleated RBC % /100WBC Nucleated RBCs # K/uL INR APTT 53.7 H (18.6-31.3) SEC Sodium (136-148) mmol/L Potassium (3.5-5.1) mmol/L Chloride (98-107) mmol/L Carbon Dioxide (21.0-32.0) mmol/L BUN (7.0-18.0) mg/dL Creatinine (0.8-1.3) mg/dL Est Cr Clr Drug Dosing mL/min Estimated GFR (MDRD) ml/min Glucose (74-106) mg/dL Calcium (8.5-10.1) mg/dL Magnesium (1.8-2.4) mg/dL Total Bilirubin (0.2-1.0) mg/dL Direct Bilirubin (0.0-0.5) mg/dL AST (15-37) IU/L ALT (14-63) IU/L Alkaline Phosphatase (46-116) U/L Troponin I (0.000-0.056) ng/mL C-Reactive Protein (0.00-0.90) mg/dL Total Protein (6.4-8.2) g/dL Albumin (3.4-5.0) g/dL Globulin (2.6-4.0) g/dL Albumin/Globulin Ratio (0.9-1.6) Urine Color Urine Appearance Urine pH (5.0-8.0) Ur Specific [place]rie (1.001-1.035) Urine Protein (NEGATIVE) mg/dL Urine Glucose (UA) (NEGATIVE) mg/dL Urine Ketones (NEGATIVE) mg/dL Urine Occult Blood (NEGATIVE) Urine Nitrite (NEGATIVE) Urine Bilirubin (NEGATIVE) Urine Urobilinogen (<2.0) EU/dL Ur Leukocyte Esterase (NEGATIVE) SARS-CoV-2 RNA (KARINA) (NEGATIVE) Result Diagrams: 12/10/20 05:30 12/10/20 05:30 Sepsis Event Note - Evaluation Sepsis Screening Result: No Definite Risk - Focused Exam Vital Signs: Vital Signs Temp Resp BP Pulse Ox 12/10/20 08:00 24 H 133/88 93 L 12/10/20 07:00 97.7 F 16 113/89 95 12/10/20 06:00 19 115/79 93 L 12/10/20 05:00 97.7 F 20 96/59 L 93 L 12/10/20 04:00 21 H 95/55 L 92 L 10/25/21 03:00 23 H 97/60 93 L 12/10/20 02:00 21 H 97/57 L 92 L 12/10/20 01:00 21 H 103/60 90 L 12/10/20 00:00 98 F 14 122/77 95 12/09/20 23:00 21 H 123/75 93 L 12/09/20 22:00 25 H 125/83 94 L 12/09/20 21:00 21 H 117/84 93 L - Problem List & Annotations (1) DVT (deep venous thrombosis) SNOMED Code(s): 088809648 Code(s): I82.409 - ACUTE EMBOLISM AND THOMBOS UNSP DEEP VN UNSP LOWER EXTREMITY Status: Acute Current Visit: Yes Qualifiers: DVT location: lower extremity Affected thrombotic vein of extremity: femoral Chronicity: acute Laterality: left Qualified Code(s): I82.412 - Acute embolism and thrombosis of left femoral vein (2) Hypoxia SNOMED Code(s): 063928641 Code(s): R09.02 - HYPOXEMIA Status: Acute Current Visit: Yes (3) Pulmonary embolism SNOMED Code(s): 76061708 Code(s): I26.99 - OTHER PULMONARY EMBOLISM WITHOUT ACUTE COR PULMONALE Status: Acute Current Visit: Yes - Problem List Review Problem List Initiated/Reviewed/Updated: Yes - Plan Plan:: Pulmonary emboli causing hypoxia, left DVT. -We will start patient on warfarin sliding scale and Lovenox 100 mg twice daily. We will discontinue heparin drip. -Dexamethasone 6 mg. Patient has refused remdesivir. Pantoprazole 40 mg. -Patient had a echocardiogram this morning and will follow up with results. <Chandni Saini - Last Filed: 12/11/20 19:30> - General Info Subjective Update: I have seen and evaluated the patient and agree with the residents note unless specified in my note - Patient Data Vitals - Most Recent: Last Vital Signs Temp 36.8 C 12/11/20 16:00 Pulse 103 H 12/11/20 16:00 Resp 22 H 12/11/20 16:00 BP 146/90 H 12/11/20 16:00 Pulse Ox 94 L 12/11/20 16:00 I&O - Last 24 Hours: Intake & Output 1012/11/20 12/11/20 06:59 14:59 22:59 Intake Total 1380 1800 Output Total 0 Balance 1380 1800 Lab Results Last 24 Hours: Laboratory Results - last 24 hr 12/11/20 12/11/20 12/11/20 Range/Units 05:21 05:21 05:21 WBC 10.02 (4.0-11.0) K/uL RBC 4.84 (4.50-5.90) M/uL Hgb 14.2 (13.0-17.0) g/dL Hct 42.4 (38.0-50.0) % MCV 87.6 (80.0-98.0) fL MCH 29.3 (27.0-32.0) pg MCHC 33.5 (31.0-37.0) g/dL RDW Std Deviation 41.8 (28.0-62.0) fl RDW Coeff of Dante 13 (11.0-15.0) % Plt Count 246 (150-400) K/uL MPV 11.10 (7.40-12.00) fL Neut % (Auto) 83.0 H (48.0-80.0) % Lymph % (Auto) 9.1 L (16.0-40.0) % [place] % (Auto) 5.3 (0.0-15.0) % Eos % (Auto) 2.5 (0.0-7.0) % Baso % (Auto) 0.1 (0.0-1.5) % Neut # (Auto) 8.3 H (1.4-5.7) K/uL Lymph # (Auto) 0.9 (0.6-2.4) K/uL [place] # (Auto) 0.5 (0.0-0.8) K/uL Eos # (Auto) 0.3 (0.0-0.7) K/uL Baso # (Auto) 0.0 (0.0-0.1) K/uL Nucleated RBC % 0.0 /100WBC Nucleated RBCs # 0 K/uL INR 1.16 Sodium 138 (136-148) mmol/L Potassium 4.1 (3.5-5.1) mmol/L Chloride 102 (98-107) mmol/L Carbon Dioxide 26.2 (21.0-32.0) mmol/L BUN 17 (7.0-18.0) mg/dL Creatinine 0.9 (0.8-1.3) mg/dL Est Cr Clr Drug Dosing 103.42 mL/min Estimated GFR (MDRD) > 60.0 ml/min Glucose 216 H (74-106) mg/dL Calcium 8.8 (8.5-10.1) mg/dL Total Bilirubin 0.4 (0.2-1.0) mg/dL AST 11 L (15-37) IU/L ALT 80 H (14-63) IU/L Alkaline Phosphatase 63 (46-116) U/L Total Protein 7.3 (6.4-8.2) g/dL Albumin 2.9 L (3.4-5.0) g/dL Globulin 4.4 H (2.6-4.0) g/dL Albumin/Globulin Ratio 0.7 L (0.9-1.6) Med Orders - Current: Current Medications Dexamethasone (Dexamethasone 4 Mg Tab) 6 mg PO Q24H [facility] Last Admin: 12/11/20 14:50 Dose: 6 mg Documented by: Enoxaparin Sodium (Enoxaparin 100 Mg/1 Ml Syringe) 100 mg SUBCUT Q12H [facility] Last Admin: 12/11/20 11:27 Dose: 100 mg Documented by: Pantoprazole Sodium (Pantoprazole 40 Mg Tab.Cr) 40 mg PO DAILY [facility] Last Admin: 12/11/20 09:30 Dose: 40 mg Documented by: Sodium Chloride (Sodium Chloride 0.9% 10 Ml Syringe) 10 ml FLUSH ASDIRECTED PRN PRN Reason: Keep Vein Open Last Admin: 12/09/20 11:33 Dose: 10 ml Documented by: Sodium Chloride (Sodium Chloride 0.9% 2.5 Ml Syringe) 2.5 ml FLUSH ASDIRECTED PRN PRN Reason: Keep Vein Open Last Admin: 12/09/20 11:33 Dose: 2.5 ml Documented by: Warfarin Sodium (Warfarin Sliding Scale) 1 each PO DAILY@1400 [facility]AN; Protocol Last Admin: 12/11/20 14:43 Dose: Not Given Documented by: Discontinued Medications Heparin Sodium (Porcine) (Heparin Sodium 5,000 Units/Ml Vial) 5,000 units IVPUSH .BOLUS ONE Stop: 12/09/20 12:29 Last Admin: 12/09/20 13:08 Dose: 5,000 units Documented by: Heparin Sodium/Sodium Chloride (Heparin 25,000 Units In 1/2 Ns 500 Ml) 500 mls @ 38.16 mls/hr IV TITRATE [facility]; Protocol Last Admin: 12/10/20 05:33 Dose: 15 units/kg/hr, 31.8 mls/hr Documented by: Remdesivir 200 mg/ Sodium (Chloride) 250 mls @ 250 mls/hr IV ONETIME ONE Stop: 12/09/20 13:07 Last Admin: 12/09/20 13:43 Dose: Not Given Documented by: Lactated Ringer's (Ringers, Lactated) 1,000 mls @ 999 mls/hr IV .BOLUS ONE Stop: 12/10/20 09:43 Last Admin: 12/10/20 08:58 Dose: 999 mls/hr Documented by: Iopamidol (Iopamidol 755 Mg/Ml 500 Ml Multipack Bottle) 100 ml IVPUSH ONETIME ONE Stop: 12/09/20 12:55 Last Admin: 12/09/20 12:56 Dose: 100 ml Documented by: Warfarin Sodium (Warfarin Sliding Scale) 0 each PO DAILY@1400 ETHAN; Protocol Last Admin: 12/10/20 15:29 Dose: Not Given Documented by: Warfarin Sodium (Warfarin 10 Mg Tab) 10 mg PO 12/10/20@1200 ETHAN Stop: 12/10/20 12:01 Last Admin: 12/10/20 12:13 Dose: 10 mg Documented by: Warfarin Sodium (Warfarin 5 Mg Tab) 0 mg PO .Pharmacy To Dose [facility] Warfarin Sodium (Warfarin 10 Mg Tab) 10 mg PO DAILY@1400 ONE Stop: 12/11/20 14:01 Last Admin: 12/11/20 13:43 Dose: 10 mg Documented by: - Patient Data Lab Results Last 24 hrs: Laboratory Results - last 24 hr 12/11/20 12/11/20 12/11/20 Range/Units 05:21 05:21 05:21 WBC 10.02 (4.0-11.0) K/uL RBC 4.84 (4.50-5.90) M/uL Hgb 14.2 (13.0-17.0) g/dL Hct 42.4 (38.0-50.0) % MCV 87.6 (80.0-98.0) fL MCH 29.3 (27.0-32.0) pg MCHC 33.5 (31.0-37.0) g/dL RDW Std Deviation 41.8 (28.0-62.0) fl RDW Coeff of Dante 13 (11.0-15.0) % Plt Count 246 (150-400) K/uL MPV 11.10 (7.40-12.00) fL Neut % (Auto) 83.0 H (48.0-80.0) % Lymph % (Auto) 9.1 L (16.0-40.0) % [place] % (Auto) 5.3 (0.0-15.0) % Eos % (Auto) 2.5 (0.0-7.0) % Baso % (Auto) 0.1 (0.0-1.5) % Neut # (Auto) 8.3 H (1.4-5.7) K/uL Lymph # (Auto) 0.9 (0.6-2.4) K/uL [place] # (Auto) 0.5 (0.0-0.8) K/uL Eos # (Auto) 0.3 (0.0-0.7) K/uL Baso # (Auto) 0.0 (0.0-0.1) K/uL Nucleated RBC % 0.0 /100WBC Nucleated RBCs # 0 K/uL INR 1.16 Sodium 138 (136-148) mmol/L Potassium 4.1 (3.5-5.1) mmol/L Chloride 102 (98-107) mmol/L Carbon Dioxide 26.2 (21.0-32.0) mmol/L BUN 17 (7.0-18.0) mg/dL Creatinine 0.9 (0.8-1.3) mg/dL Est Cr Clr Drug Dosing 103.42 mL/min Estimated GFR (MDRD) > 60.0 ml/min Glucose 216 H (74-106) mg/dL Calcium 8.8 (8.5-10.1) mg/dL Total Bilirubin 0.4 (0.2-1.0) mg/dL AST 11 L (15-37) IU/L ALT 80 H (14-63) IU/L Alkaline Phosphatase 63 (46-116) U/L Total Protein 7.3 (6.4-8.2) g/dL Albumin 2.9 L (3.4-5.0) g/dL Globulin 4.4 H (2.6-4.0) g/dL Albumin/Globulin Ratio 0.7 L (0.9-1.6) Result Diagrams: 12/11/20 05:21 12/11/20 05:21 Sepsis Event Note - Focused Exam Vital Signs: Vital Signs Temp Pulse Resp BP Pulse Ox Pulse Ox 12/11/20 16:00 36.8 C 103 H 22 H 146/90 H 94 L 12/11/20 14:00 93 L 12/11/20 12:00 35.9 C L 95 18 123/73 93 L 12/11/20 08:00 36.4 C 97 18 134/72 94 L - Problem List & Annotations (1) COVID-19 virus infection SNOMED Code(s): 317922470 Code(s): U07.1 - COVID-19 Status: Acute Current Visit: Yes (2) DVT (deep venous thrombosis) SNOMED Code(s): 294594820 Code(s): I82.409 - ACUTE EMBOLISM AND THOMBOS UNSP DEEP VN UNSP LOWER EX TREMITY Status: Acute Current Visit: Yes Qualifiers: DVT location: lower extremity Affected thrombotic vein of extremity: femoral Chronicity: acute Laterality: left Qualified Code(s): I82.412 - Acute embolism and thrombosis of left femoral vein (3) Hypoxia SNOMED Code(s): 630807370 Code(s): R09.02 - HYPOXEMIA Status: Acute Current Visit: Yes (4) Pulmonary embolism SNOMED Code(s): 55283009 Code(s): I26.99 - OTHER PULMONARY EMBOLISM WITHOUT ACUTE COR PULMONALE Status: Acute Current Visit: Yes - My Orders Last 24 Hours: My Active Orders 12/12/20 05:11 BMP [BASIC METABOLIC PANEL,BMP] [CHEM] AM INR,PT,PROTHROMBIN TIME [[facility]] AM 12/13/20 05:11 INR,PT,PROTHROMBIN TIME [COAG] AM 12/14/20 05:11 INR,PT,PROTHROMBIN TIME [COAG] AM
[2020-12-10] MEDS ORDERED: Warfarin 10 MG Tab PO SCH ×2 (11:00→12:00)
[2020-12-10] MEDS: Warfarin Sliding Scale PO SCH ×2 (11:18→15:29)
[2020-12-10] MEDS: Enoxaparin 100 MG/1 ML Syringe SUBCUT SCH (11:24)
[2020-12-10] MEDS: Dexamethasone 4 MG Tab PO SCH (15:28)
[2020-12-11] MEDS: Enoxaparin 100 MG/1 ML Syringe SUBCUT SCH ×3 (00:49→23:35)
[2020-12-11 07:56] LABS: BLOOD UREA NITROGEN,BUN 17 mg/dL (7.0-18.0); CARBON DIOXIDE,CO2 26.2 mmol/L (21.0-32.0); CHLORIDE,CL 102 mmol/L (98-107); GLUCOSE RANDOM 216 mg/dL (74-106); POTASSIUM,K 4.1 mmol/L (3.5-5.1); SODIUM,NA 138 mmol/L (136-148)
[2020-12-11] MEDS: Pantoprazole 40 MG Tab.CR PO SCH (09:30)
[2020-12-11] MEDS ORDERED: Warfarin 10 MG Tab PO ONE (14:00)
[2020-12-11] MEDS: Warfarin Sliding Scale PO SCH (14:43)
[2020-12-11] MEDS: Dexamethasone 4 MG Tab PO SCH (14:50)
--- NOTE | 2020-12-11 17:10 | ECHO ---
EXAM DATE: 12/09/20 PATIENT'S AGE: 50 The ECHO report has been scanned into [employer] and can be seen in this patient's EMR (Electronic Medical Record) under the REPORTS section. The report has also been scanned into PACS. SACHI
[2020-12-11] MEDS ORDERED: Warfarin 5 MG Tab PO SCH (19:00)
--- NOTE | 2020-12-11 19:30 | PCM.PN ---
- General Info Date of Service: 12/11/20 Admission Dx/Problem (Free Text): Admission Diagnosis/Problem Admission Diagnosis/Problem PE, Pulmonary embolism Subjective Update: Patient seen at bedside along with family, has been weaned off oxygen patient wants to stay 1 more day and is a little apprehensive of going home today. INR is still subtherapeutic patient is being bridged with Lovenox Functional Status: Reports: Tolerating Diet, Ambulating, Urinating - Review of Systems General: Denies: Fever, Weakness, Fatigue Pulmonary: Denies: Shortness of Breath, Pleuritic Chest Pain, Cough Cardiovascular: Denies: Chest Pain, Palpitations, Dyspnea on Exertion Gastrointestinal: Denies: Abdominal Pain, Constipation, Decreased Appetite Genitourinary: Denies: Dysuria, Frequency, Burning, Urgency Musculoskeletal: Denies: Neck Pain, Shoulder Pain, Arm Pain Skin: Denies: Cyanosis, Jaundice, Mottled - Patient Data Vitals - Most Recent: Last Vital Signs Temp 36.8 C 12/11/20 16:00 Pulse 103 H 12/11/20 16:00 Resp 22 H 12/11/20 16:00 BP 146/90 H 12/11/20 16:00 Pulse Ox 94 L 12/11/20 16:00 Weight - Most Recent: 105.097 kg I&O - Last 24 Hours: Intake & Output 12/11/20 12/11/20 12/11/20 06:59 14:59 22:59 Intake Total 1380 1800 Output Total 0 Balance 1380 1800 Lab Results Last 24 Hours: Laboratory Results - last 24 hr 12/11/20 12/11/20 12/11/20 Range/Units 05:21 05:21 05:21 WBC 10.02 (4.0-11.0) K/uL RBC 4.84 (4.50-5.90) M/uL Hgb 14.2 (13.0-17.0) g/dL Hct 42.4 (38.0-50.0) % MCV 87.6 (80.0-98.0) fL MCH 29.3 (27.0-32.0) pg MCHC 33.5 (31.0-37.0) g/dL RDW Std Deviation 41.8 (28.0-62.0) fl RDW Coeff of Dante 13 (11.0-15.0) % Plt Count 246 (150-400) K/uL MPV 11.10 (7.40-12.00) fL Neut % (Auto) 83.0 H (48.0-80.0) % Lymph % (Auto) 9.1 L (16.0-40.0) % [place] % (Auto) 5.3 (0.0-15.0) % Eos % (Auto) 2.5 (0.0-7.0) % Baso % (Auto) 0.1 (0.0-1.5) % Neut # (Auto) 8.3 H (1.4-5.7) K/uL Lymph # (Auto) 0.9 (0.6-2.4) K/uL [place] # (Auto) 0.5 (0.0-0.8) K/uL Eos # (Auto) 0.3 (0.0-0.7) K/uL Baso # (Auto) 0.0 (0.0-0.1) K/uL Nucleated RBC % 0.0 /100WBC Nucleated RBCs # 0 K/uL INR 1.16 Sodium 138 (136-148) mmol/L Potassium 4.1 (3.5-5.1) mmol/L Chloride 102 (98-107) mmol/L Carbon Dioxide 26.2 (21.0-32.0) mmol/L BUN 17 (7.0-18.0) mg/dL Creatinine 0.9 (0.8-1.3) mg/dL Est Cr Clr Drug Dosing 103.42 mL/min Estimated GFR (MDRD) > 60.0 ml/min Glucose 216 H (74-106) mg/dL Calcium 8.8 (8.5-10.1) mg/dL Total Bilirubin 0.4 (0.2-1.0) mg/dL AST 11 L (15-37) IU/L ALT 80 H (14-63) IU/L Alkaline Phosphatase 63 (46-116) U/L Total Protein 7.3 (6.4-8.2) g/dL Albumin 2.9 L (3.4-5.0) g/dL Globulin 4.4 H (2.6-4.0) g/dL Albumin/Globulin Ratio 0.7 L (0.9-1.6) Med Orders - Current: Current Medications Dexamethasone (Dexamethasone 4 Mg Tab) 6 mg PO Q24H [facility] Last Admin: 12/11/20 14:50 Dose: 6 mg Documented by: Enoxaparin Sodium (Enoxaparin 100 Mg/1 Ml Syringe) 100 mg SUBCUT Q12H [facility] Last Admin: 12/11/20 11:27 Dose: 100 mg Documented by: Pantoprazole Sodium (Pantoprazole 40 Mg Tab.Cr) 40 mg PO DAILY [facility] Last Admin: 12/11/20 09:30 Dose: 40 mg Documented by: Sodium Chloride (Sodium Chloride 0.9% 10 Ml Syringe) 10 ml FLUSH ASDIRECTED PRN PRN Reason: Keep Vein Open Last Admin: 12/09/20 11:33 Dose: 10 ml Documented by: Sodium Chloride (Sodium Chloride 0.9% 2.5 Ml Syringe) 2.5 ml FLUSH ASDIRECTED PRN PRN Reason: Keep Vein Open Last Admin: 12/09/20 11:33 Dose: 2.5 ml Documented by: Warfarin Sodium (Warfarin Sliding Scale) 1 each PO DAILY@1400 ETHAN; Protocol Last Admin: 12/11/20 14:43 Dose: Not Given Documented by: Discontinued Medications Heparin Sodium (Porcine) (Heparin Sodium 5,000 Units/Ml Vial) 5,000 units IVPUSH .BOLUS ONE Stop: 12/09/20 12:29 Last Admin: 12/09/20 13:08 Dose: 5,000 units Documented by: Heparin Sodium/Sodium Chloride (Heparin 25,000 Units In 1/2 Ns 500 Ml) 500 mls @ 38.16 mls/hr IV TITRATE [facility]; Protocol Last Admin: 12/10/20 05:33 Dose: 15 units/kg/hr, 31.8 mls/hr Documented by: Remdesivir 200 mg/ Sodium (Chloride) 250 mls @ 250 mls/hr IV ONETIME ONE Stop: 12/09/20 13:07 Last Admin: 12/09/20 13:43 Dose: Not Given Documented by: Lactated Ringer's (Ringers, Lactated) 1,000 mls @ 999 mls/hr IV .BOLUS ONE Stop: 12/10/20 09:43 Last Admin: 12/10/20 08:58 Dose: 999 mls/hr Documented by: Iopamidol (Iopamidol 755 Mg/Ml 500 Ml Multipack Bottle) 100 ml IVPUSH ONETIME ONE Stop: 12/09/20 12:55 Last Admin: 12/09/20 12:56 Dose: 100 ml Documented by: Warfarin Sodium (Warfarin Sliding Scale) 0 each PO DAILY@1400 ETHAN; Protocol Last Admin: 12/10/20 15:29 Dose: Not Given Documented by: Warfarin Sodium (Warfarin 10 Mg Tab) 10 mg PO 12/10/20@1200 ETHAN Stop: 12/10/20 12:01 Last Admin: 12/10/20 12:13 Dose: 10 mg Documented by: Warfarin Sodium (Warfarin 5 Mg Tab) 0 mg PO .Pharmacy To Dose [facility] Warfarin Sodium (Warfarin 10 Mg Tab) 10 mg PO DAILY@1400 ONE Stop: 12/11/20 14:01 Last Admin: 12/11/20 13:43 Dose: 10 mg Documented by: - Exam Quality Assessment: No: Supplemental Oxygen General: Alert Lungs: Clear to Auscultation, Normal Respiratory Effort. No: Decreased Breath Sounds Cardiovascular: Regular Rate GI/Abdominal Exam: Normal Bowel Sounds, Soft, Non-Tender Back Exam: Normal Inspection Extremities: Normal Inspection, Normal Range of Motion - Patient Data Lab Results Last 24 hrs: Laboratory Results - last 24 hr 12/11/20 12/11/20 12/11/20 Range/Units 05:21 05:21 05:21 WBC 10.02 (4.0-11.0) K/uL RBC 4.84 (4.50-5.90) M/uL Hgb 14.2 (13.0-17.0) g/dL Hct 42.4 (38.0-50.0) % MCV 87.6 (80.0-98.0) fL MCH 29.3 (27.0-32.0) pg MCHC 33.5 (31.0-37.0) g/dL RDW Std Deviation 41.8 (28.0-62.0) fl RDW Coeff of Dante 13 (11.0-15.0) % Plt Count 246 (150-400) K/uL MPV 11.10 (7.40-12.00) fL Neut % (Auto) 83.0 H (48.0-80.0) % Lymph % (Auto) 9.1 L (16.0-40.0) % [place] % (Auto) 5.3 (0.0-15.0) % Eos % (Auto) 2.5 (0.0-7.0) % Baso % (Auto) 0.1 (0.0-1.5) % Neut # (Auto) 8.3 H (1.4-5.7) K/uL Lymph # (Auto) 0.9 (0.6-2.4) K/uL [place] # (Auto) 0.5 (0.0-0.8) K/uL Eos # (Auto) 0.3 (0.0-0.7) K/uL Baso # (Auto) 0.0 (0.0-0.1) K/uL Nucleated RBC % 0.0 /100WBC Nucleated RBCs # 0 K/uL INR 1.16 Sodium 138 (136-148) mmol/L Potassium 4.1 (3.5-5.1) mmol/L Chloride 102 (98-107) mmol/L Carbon Dioxide 26.2 (21.0-32.0) mmol/L BUN 17 (7.0-18.0) mg/dL Creatinine 0.9 (0.8-1.3) mg/dL Est Cr Clr Drug Dosing 103.42 mL/min Estimated GFR (MDRD) > 60.0 ml/min Glucose 216 H (74-106) mg/dL Calcium 8.8 (8.5-10.1) mg/dL Total Bilirubin 0.4 (0.2-1.0) mg/dL AST 11 L (15-37) IU/L ALT 80 H (14-63) IU/L Alkaline Phosphatase 63 (46-116) U/L Total Protein 7.3 (6.4-8.2) g/dL Albumin 2.9 L (3.4-5.0) g/dL Globulin 4.4 H (2.6-4.0) g/dL Albumin/Globulin Ratio 0.7 L (0.9-1.6) Result Diagrams: 12/11/20 05:21 12/11/20 05:21 Sepsis Event Note - Evaluation Sepsis Screening Result: No Definite Risk - Focused Exam Vital Signs: Vital Signs Temp Pulse Resp BP Pulse Ox Pulse Ox 12/11/20 16:00 36.8 C 103 H 22 H 146/90 H 94 L 12/11/20 14:00 93 L 12/11/20 12:00 35.9 C L 95 18 123/73 93 L 12/11/20 08:00 36.4 C 97 18 134/72 94 L - Problem List & Annotations (1) COVID-19 virus infection SNOMED Code(s): 683612186 Code(s): U07.1 - COVID-19 Status: Acute Current Visit: Yes (2) DVT (deep venous thrombosis) SNOMED Code(s): 625100432 Code(s): I82.409 - ACUTE EMBOLISM AND THOMBOS UNSP DEEP VN UNSP LOWER EXTREMITY Status: Acute Current Visit: Yes Qualifiers: DVT location: lower extremity Affected thrombotic vein of extremity: femoral Chronicity: acute Laterality: left Qualified Code(s): I82.412 - Acute embolism and thrombosis of left femoral vein (3) Hypoxia SNOMED Code(s): 997284125 Code(s): R09.02 - HYPOXEMIA Status: Acute Current Visit: Yes (4) Pulmonary embolism SNOMED Code(s): 81086292 Code(s): I26.99 - OTHER PULMONARY EMBOLISM WITHOUT ACUTE COR PULMONALE Status: Acute Current Visit: Yes - Problem List Review Problem List Initiated/Reviewed/Updated: Yes - My Orders Last 24 Hours: My Active Orders 12/12/20 05:11 BMP [BASIC METABOLIC PANEL,BMP] [CHEM] AM INR,PT,PROTHROMBIN TIME [[facility]] AM 12/13/20 05:11 INR,PT,PROTHROMBIN TIME [[facility]] AM 12/14/20 05:11 INR,PT,PROTHROMBIN TIME [COAG] AM - Plan Plan:: Pulmonary emboli causing hypoxia, left DVT. -cont on warfarin sliding scale and Lovenox 100 mg twice daily. Check INR daily -Dexamethasone 6 mg. Patient has refused remdesivir. Pantoprazole 40 mg. -Patient had a echocardiogram , no acute findings on 2D echo
[2020-12-12 07:44] LABS: BLOOD UREA NITROGEN,BUN 15 mg/dL (7.0-18.0); CARBON DIOXIDE,CO2 27.7 mmol/L (21.0-32.0); CHLORIDE,CL 101 mmol/L (98-107); GLUCOSE RANDOM 217 mg/dL (74-106); POTASSIUM,K 4.3 mmol/L (3.5-5.1); SODIUM,NA 137 mmol/L (136-148)
[2020-12-12] MEDS: Pantoprazole 40 MG Tab.CR PO SCH (09:24)
--- NOTE | 2020-12-12 11:03 | PCM.PN ---
<Koki Padilla - Last Filed: 12/12/20 10:59> - General Info Date of Service: 12/12/20 Admission Dx/Problem (Free Text): Admission Diagnosis/Problem Admission Diagnosis/Problem PE, Pulmonary embolism Subjective Update: Patient seen at bedside. Doing well on room air. Currently being bridges. INR today 1.41. Patient states his breathing has improved significantly. Denies chest pain or palpitations. No fevers. No calf pain. - Review of Systems General: Denies: Fever, Chills HEENT: Denies: Headaches Pulmonary: Denies: Shortness of Breath, Pleuritic Chest Pain, Cough, Hemoptysis Cardiovascular: Reports: Dyspnea on Exertion. Denies: Chest Pain, Palpitations, Lightheadedness Gastrointestinal: Denies: Abdominal Pain, Constipation, Decreased Appetite, Diarrhea, Nausea, Vomiting Genitourinary: Denies: Dysuria Musculoskeletal: Denies: Leg Pain Skin: Denies: Cyanosis, Rash Neurological: Denies: Confusion, Dizziness, Headache, Numbness, Paresthesia - Patient Data Vitals - Most Recent: Last Vital Signs Temp 97.2 F 12/12/20 04:17 Pulse 82 12/12/20 04:17 Resp 18 12/12/20 04:17 BP 121/74 12/12/20 04:17 Pulse Ox 96 12/12/20 04:17 Weight - Most Recent: 105.097 kg I&O - Last 24 Hours: Intake & Output 12/11/20 12/12/20 12/12/20 22:59 06:59 14:59 Intake Total 1800 850 Output Total 0 Balance 1800 850 Lab Results Last 24 Hours: Laboratory Results - last 24 hr 12/12/20 12/12/20 12/12/20 Range/Units 06:58 06:58 06:58 WBC 10.17 (4.0-11.0) K/uL RBC 4.73 (4.50-5.90) M/uL Hgb 14.1 (13.0-17.0) g/dL Hct 41.0 (38.0-50.0) % MCV 86.7 (80.0-98.0) fL MCH 29.8 (27.0-32.0) pg MCHC 34.4 (31.0-37.0) g/dL RDW Std Deviation 41.6 (28.0-62.0) fl RDW Coeff of Dante 13 (11.0-15.0) % Plt Count 196 (150-400) K/uL MPV 10.80 (7.40-12.00) fL Neut % (Auto) 80.8 H (48.0-80.0) % Lymph % (Auto) 11.9 L (16.0-40.0) % [place] % (Auto) 6.2 (0.0-15.0) % Eos % (Auto) 1.0 (0.0-7.0) % Baso % (Auto) 0.1 (0.0-1.5) % Neut # (Auto) 8.2 H (1.4-5.7) K/uL Lymph # (Auto) 1.2 (0.6-2.4) K/uL [place] # (Auto) 0.6 (0.0-0.8) K/uL Eos # (Auto) 0.1 (0.0-0.7) K/uL Baso # (Auto) 0.0 (0.0-0.1) K/uL Nucleated RBC % 0.0 /100WBC Nucleated RBCs # 0 K/uL INR 1.41 Sodium 137 (136-148) mmol/L Potassium 4.3 (3.5-5.1) mmol/L Chloride 101 (98-107) mmol/L Carbon Dioxide 27.7 (21.0-32.0) mmol/L BUN 15 (7.0-18.0) mg/dL Creatinine 0.7 L (0.8-1.3) mg/dL Est Cr Clr Drug Dosing 132.97 mL/min Estimated GFR (MDRD) > 60.0 ml/min Glucose 217 H (74-106) mg/dL Calcium 8.6 (8.5-10.1) mg/dL Med Orders - Current: Current Medications Dexamethasone (Dexamethasone 4 Mg Tab) [address] [facility] Last Admin: 12/11/20 14:50 Dose: 6 mg Documented by: Enoxaparin Sodium (Enoxaparin 100 Mg/1 Ml Syringe) [address] [facility] Last Admin: 12/11/20 23:35 Dose: 100 mg Documented by: Pantoprazole Sodium (Pantoprazole 40 Mg Tab.Cr) [address] [facility] Last Admin: 12/12/20 09:24 Dose: 40 mg Documented by: Sodium Chloride (Sodium Chloride 0.9% 10 Ml Syringe) 10 ml FLUSH ASDIRECTED PRN PRN Reason: Keep Vein Open Last Admin: 12/09/20 11:33 Dose: 10 ml Documented by: Sodium Chloride (Sodium Chloride 0.9% 2.5 Ml Syringe) 2.5 ml FLUSH ASDIRECTED PRN PRN Reason: Keep Vein Open Last Admin: 12/09/20 11:33 Dose: 2.5 ml Documented by: Warfarin Sodium (Warfarin Sliding Scale) 1 each PO DAILY@1400 ETHAN; Protocol Last Admin: 12/11/20 14:43 Dose: Not Given Documented by: Discontinued Medications Heparin Sodium (Porcine) (Heparin Sodium 5,000 Units/Ml Vial) 5,000 units IVPUSH .BOLUS ONE Stop: 12/09/20 12:29 Last Admin: 12/09/20 13:08 Dose: 5,000 units Documented by: Heparin Sodium/Sodium Chloride (Heparin 25,000 Units In 1/2 Ns 500 Ml) 500 mls @ 38.16 mls/hr IV TITRATE ETHAN; Protocol Last Admin: 12/10/20 05:33 Dose: 15 units/kg/hr, 31.8 mls/hr Documented by: Remdesivir 200 mg/ Sodium (Chloride) 250 mls @ 250 mls/hr IV ONETIME ONE Stop: 12/09/20 13:07 Last Admin: 12/09/20 13:43 Dose: Not Given Documented by: Lactated Ringer's (Ringers, Lactated) 1,000 mls @ 999 mls/hr IV .BOLUS ONE Stop: 12/10/20 09:43 Last Admin: 12/10/20 08:58 Dose: 999 mls/hr Documented by: Iopamidol (Iopamidol 755 Mg/Ml 500 Ml Multipack Bottle) 100 ml IVPUSH ONETIME ONE Stop: 12/09/20 12:55 Last Admin: 12/09/20 12:56 Dose: 100 ml Documented by: Warfarin Sodium (Warfarin Sliding Scale) 0 each PO DAILY@1400 ETHAN; Protocol Last Admin: 12/10/20 15:29 Dose: Not Given Documented by: Warfarin Sodium (Warfarin 10 Mg Tab) 10 mg PO 12/10/20@1200 ETHAN Stop: 12/10/20 12:01 Last Admin: 12/10/20 12:13 Dose: 10 mg Documented by: Warfarin Sodium (Warfarin 5 Mg Tab) 0 mg PO .Pharmacy To Dose ETHAN Warfarin Sodium (Warfarin 10 Mg Tab) 10 mg PO DAILY@1400 ONE Stop: 12/11/20 14:01 Last Admin: 12/11/20 13:43 Dose: 10 mg Documented by: - Exam Quality Assessment: No: Supplemental Oxygen General: Alert, Oriented, Cooperative, No Acute Distress HEENT: Pupils Equal, Pupils Reactive Neck: Supple, Trachea Midline Lungs: Normal Respiratory Effort, Decreased Breath Sounds Cardiovascular: Regular Rate, Regular Rhythm. No: Tachycardia GI/Abdominal Exam: Normal Bowel Sounds, Soft, Non-Tender Back Exam: Normal Inspection Extremities: Normal Inspection, Normal Range of Motion, Non-Tender, No Pedal Edema. No: Christiano's Sign, Leg Pain Peripheral Pulses: 2+: Dorsalis Pedis (L), Dorsalis Pedis (R) Skin: Warm, Dry, Intact Neurological: No New Focal Deficit - Patient Data Lab Results Last 24 hrs: Laboratory Results - last 24 hr 12/12/20 12/12/20 12/12/20 Range/Units 06:58 06:58 06:58 WBC 10.17 (4.0-11.0) K/uL RBC 4.73 (4.50-5.90) M/uL Hgb 14.1 (13.0-17.0) g/dL Hct 41.0 (38.0-50.0) % MCV 86.7 (80.0-98.0) fL MCH 29.8 (27.0-32.0) pg MCHC 34.4 (31.0-37.0) g/dL RDW Std Deviation 41.6 (28.0-62.0) fl RDW Coeff of Dante 13 (11.0-15.0) % Plt Count 196 (150-400) K/uL MPV 10.80 (7.40-12.00) fL Neut % (Auto) 80.8 H (48.0-80.0) % Lymph % (Auto) 11.9 L (16.0-40.0) % [place] % (Auto) 6.2 (0.0-15.0) % Eos % (Auto) 1.0 (0.0-7.0) % Baso % (Auto) 0.1 (0.0-1.5) % Neut # (Auto) 8.2 H (1.4-5.7) K/uL Lymph # (Auto) 1.2 (0.6-2.4) K/uL [place] # (Auto) 0.6 (0.0-0.8) K/uL Eos # (Auto) 0.1 (0.0-0.7) K/uL Baso # (Auto) 0.0 (0.0-0.1) K/uL Nucleated RBC % 0.0 /100WBC Nucleated RBCs # 0 K/uL INR 1.41 Sodium 137 (136-148) mmol/L Potassium 4.3 (3.5-5.1) mmol/L Chloride 101 (98-107) mmol/L Carbon Dioxide 27.7 (21.0-32.0) mmol/L BUN 15 (7.0-18.0) mg/dL Creatinine 0.7 L (0.8-1.3) mg/dL Est Cr Clr Drug Dosing 132.97 mL/min Estimated GFR (MDRD) > 60.0 ml/min Glucose 217 H (74-106) mg/dL Calcium 8.6 (8.5-10.1) mg/dL Result Diagrams: 12/12/20 06:58 12/12/20 06:58 Sepsis Event Note - Evaluation Sepsis Screening Result: No Definite Risk - Focused Exam Vital Signs: Vital Signs Temp Pulse Resp BP Pulse Ox 12/12/20 04:17 97.2 F 82 18 121/74 96 12/11/20 23:36 97.3 F 85 18 116/76 93 L - Problem List & Annotations (1) DVT (deep venous thrombosis) SNOMED Code(s): 431063562 Code(s): I82.409 - ACUTE EMBOLISM AND THOMBOS UNSP DEEP VN UNSP LOWER EXTREMITY Status: Acute Qualifiers: DVT location: lower extremity Affected thrombotic vein of extremity: femoral Chronicity: acute Laterality: left Qualified Code(s): I82.412 - Acute embolism and thrombosis of left femoral vein (2) Hypoxia SNOMED Code(s): 767405134 Code(s): R09.02 - HYPOXEMIA Status: Acute (3) Pulmonary embolism SNOMED Code(s): 05771448 Code(s): I26.99 - OTHER PULMONARY EMBOLISM WITHOUT ACUTE COR PULMONALE Status: Acute - Problem List Review Problem List Initiated/Reviewed/Updated: Yes - My Orders Last 24 Hours: My Active Orders 12/11/20 14:00 Warfarin Sliding Scale [Coumadin Sliding Scale] 1 each PO DAILY@1400 12/13/20 05:11 CBC WITH AUTO DIFF [HEME] DAILY 12/14/20 05:11 CBC WITH AUTO DIFF [HEME] DAILY 12/15/20 05:11 CBC WITH AUTO DIFF [HEME] DAILY 12/16/20 05:11 CBC WITH AUTO DIFF [HEME] DAILY 12/17/20 05:11 CBC WITH AUTO DIFF [HEME] DAILY - Plan Plan:: Pulmonary emboli. Left DVT. -currently on room air. -INR subtherapeutic. -Warfarin sliding scale and Lovenox 100 mg twice daily. -Recheck INR in AM. Likely discharge tomorrow. -Dexamethasone 6 mg. Patient has refused remdesivir. Pantoprazole 40 mg. -Patient had a echocardiogram , no acute findings on 2D echo <Chandni Saini - Last Filed: 12/17/20 13:20> - General Info Subjective Update: I have seen and evaluated the patient and agree with the residents note unless specified in my note - Patient Data Vitals - Most Recent: Last Vital Signs Temp 36.4 C 12/13/20 12:00 Pulse 85 12/13/20 12:00 Resp 16 12/13/20 12:00 BP 115/70 12/13/20 12:00 Pulse Ox 93 L 12/13/20 12:00 Med Orders - Current: Current Medications Discontinued Medications Dexamethasone (Dexamethasone 4 Mg Tab) [address] [facility] Last Admin: 12/12/20 14:14 Dose: 6 mg Documented by: Enoxaparin Sodium (Enoxaparin 100 Mg/1 Ml Syringe) [address] [facility] Last Admin: 12/12/20 23:20 Dose: 100 mg Documented by: Enoxaparin Sodium (Enoxaparin 150 Mg/1 Ml Syringe) [address] [facility] Last Admin: 12/13/20 12:02 Dose: 150 mg Documented by: Heparin Sodium (Porcine) (Heparin Sodium 5,000 Units/Ml Vial) 5,000 units IVPUSH .BOLUS ONE Stop: 12/09/20 12:29 Last Admin: 12/09/20 13:08 Dose: 5,000 units Documented by: Heparin Sodium/Sodium Chloride (Heparin 25,000 Units In 1/2 Ns 500 Ml) 500 mls @ 38.16 mls/hr IV TITRATE ETHAN; Protocol Last Admin: 12/10/20 05:33 Dose: 15 units/kg/hr, 31.8 mls/hr Documented by: Remdesivir 200 mg/ Sodium (Chloride) 250 mls @ 250 mls/hr IV ONETIME ONE Stop: 12/09/20 13:07 Last Admin: 12/09/20 13:43 Dose: Not Given Documented by: Lactated Ringer's (Ringers, Lactated) 1,000 mls @ 999 mls/hr IV .BOLUS ONE Stop: 12/10/20 09:43 Last Admin: 12/10/20 08:58 Dose: 999 mls/hr Documented by: Iopamidol (Iopamidol 755 Mg/Ml 500 Ml Multipack Bottle) 100 ml IVPUSH ONETIME ONE Stop: 12/09/20 12:55 Last Admin: 12/09/20 12:56 Dose: 100 ml Documented by: Pantoprazole Sodium (Pantoprazole 40 Mg Tab.Cr) 40 mg PO DAILY [facility] Last Admin: 12/13/20 08:56 Dose: 40 mg Documented by: Sodium Chloride (Sodium Chloride 0.9% 10 Ml Syringe) 10 ml FLUSH ASDIRECTED PRN PRN Reason: Keep Vein Open Last Admin: 12/09/20 11:33 Dose: 10 ml Documented by: Sodium Chloride (Sodium Chloride 0.9% 2.5 Ml Syringe) 2.5 ml FLUSH ASDIRECTED PRN PRN Reason: Keep Vein Open Last Admin: 12/09/20 11:33 Dose: 2.5 ml Documented by: Warfarin Sodium (Warfarin Sliding Scale) 0 each PO DAILY@1400 ETHAN; Protocol Last Admin: 12/10/20 15:29 Dose: Not Given Documented by: Warfarin Sodium (Warfarin 10 Mg Tab) 10 mg PO 12/10/20@1200 ETHAN Stop: 12/10/20 12:01 Last Admin: 12/10/20 12:13 Dose: 10 mg Documented by: Warfarin Sodium (Warfarin Sliding Scale) 1 each PO DAILY@1400 ETHAN; Protocol Last Admin: 12/12/20 14:13 Dose: Not Given Documented by: Warfarin Sodium (Warfarin 5 Mg Tab) 0 mg PO .Pharmacy To Dose [facility] Warfarin Sodium (Warfarin 10 Mg Tab) 10 mg PO DAILY@1400 ONE Stop: 12/11/20 14:01 Last Admin: 12/11/20 13:43 Dose: 10 mg Documented by: Warfarin Sodium (Warfarin 10 Mg Tab) 10 mg PO DAILY@1400 ONE Stop: 12/12/20 14:01 Last Admin: 12/12/20 14:13 Dose: 10 mg Documented by: Warfarin Sodium (Warfarin 10 Mg Tab) 10 mg PO 12/13/20@1100 ETHAN Stop: 12/13/20 11:01 Last Admin: 12/13/20 12:03 Dose: 10 mg Documented by: - Patient Data Result Diagrams: 12/13/20 05:40 12/12/20 06:58 - Problem List & Annotations (1) COVID-19 virus infection SNOMED Code(s): 523150468 Code(s): U07.1 - COVID-19 Status: Acute (2) DVT (deep venous thrombosis) SNOMED Code(s): 682128544 Code(s): I82.409 - ACUTE EMBOLISM AND THOMBOS UNSP DEEP VN UNSP LOWER EXTREMITY Status: Acute Qualifiers: DVT location: lower extremity Affected thrombotic vein of extremity: femoral Chronicity: acute Laterality: left Qualified Code(s): I82.412 - Acute embolism and thrombosis of left femoral vein (3) Hypoxia SNOMED Code(s): 959924444 Code(s): R09.02 - HYPOXEMIA Status: Acute (4) Pulmonary embolism SNOMED Code(s): 93691138 Code(s): I26.99 - OTHER PULMONARY EMBOLISM WITHOUT ACUTE COR PULMONALE S tatus: Acute
[2020-12-12] MEDS: Enoxaparin 100 MG/1 ML Syringe SUBCUT SCH ×2 (11:37→23:20)
[2020-12-12] MEDS ORDERED: Warfarin 10 MG Tab PO ONE (14:00)
[2020-12-12] MEDS: Warfarin Sliding Scale PO SCH (14:13)
[2020-12-12] MEDS: Dexamethasone 4 MG Tab PO SCH (14:14)
[2020-12-13] MEDS: Pantoprazole 40 MG Tab.CR PO SCH (08:56)
[2020-12-13] MEDS ORDERED: Warfarin 10 MG Tab PO SCH (11:00)
[2020-12-13] MEDS ORDERED: Enoxaparin 150 MG/1 ML Syringe SUBCUT SCH (11:00)
--- NOTE | 2020-12-13 12:27 | PCM.DCSUM1 ---
<Koki Padilla - Last Filed: 12/13/20 19:29> Discharge Summary - Hospital Course Free Text/Narrative:: 50-year-old male who presented to the ED after having a syncopal event while at [employer], off of his prescribed oxygen for Covid. Patient had been diagnosed with Covid in the ER on 11/27/2020. He was diagnosed with a new DVT on subsequent ER visit on 12/01/2020. Patient was treating himself at home with hydroxychloroquine and ivermectin after declining remdesivir. He was also on oxygen via nasal cannula and prednisone which he received from the ER after refusing hospital admission. Patient developed left lower extremity DVT on 12/01 and was placed on Xarelto. In the ER patient was found to have extensive bilateral pulmonary embolisms with hypoxia and placed on a heparin drip. Patient refused remdesivir therapy this hospital stay. He was started on dexamethasone and required NC oxygen for <1 day. Patient was in ICU care for <24hours and transferred to floor. His heparin was discontinued and was bridged to warfarin with Lovenox. INR today is 1.72. Patient will be discharged on Warfarin 7.5mg daily and have INR recheck on 12/17/2020 and has a followup appointment with his primary care on that day. Patient stable on room air and vitally stable. - Discharge Data Discharge Date: 12/13/20 Discharge Disposition: Home, Self-Care 01 Condition: Stable - Referral to Home Health Primary Care Physician: Evelyne Loaiza MD - Discharge Diagnosis/Problem(s) (1) DVT (deep venous thrombosis) SNOMED Code(s): 792932774 ICD Code: I82.409 - ACUTE EMBOLISM AND THOMBOS UNSP DEEP VN UNSP LOWER EXTREMITY Status: Acute Qualifiers: DVT location: lower extremity Affected thrombotic vein of extremity: femoral Chronicity: acute Laterality: left Qualified Code(s): I82.412 - Acute embolism and thrombosis of left femoral vein (2) Hypoxia SNOMED Code(s): 468240354 ICD Code: R09.02 - HYPOXEMIA Status: Acute (3) Pulmonary embolism SNOMED Code(s): 82333698 ICD Code: I26.99 - OTHER PULMONARY EMBOLISM WITHOUT ACUTE COR PULMONALE Status: Acute - Patient Instructions Diet: Usual Diet as Tolerated Activity: As Tolerated Notify Provider of: Fever, Increased Pain, Swelling and Redness Other/Special Instructions: Please seek immediate medical attention if you experience new onset of calf pain, leg pain, chest pain, shortness of breath, increased work of breathing, palpitations, lightheadedness, dizziness, or loss of consciousness. You are being discharged on warfarin 7.5 mg daily. Patient educational information has been provided for you regarding INR levels and warfarin anticoagulation. You have been given a prescription to have your INR level rechecked on Thursday, December 17, 2020. The results will be sent to the provider you will follow-up in clinic with. - Discharge Plan *PRESCRIPTION DRUG MONITORING PROGRAM REVIEWED*: Not Applicable *COPY OF PRESCRIPTION DRUG MONITORING REPORT IN PATIENT PIERRE: Not Applicable Prescriptions/Med Rec: Warfarin [Coumadin] 7.5 mg PO DAILY 30 Days #30 tab Home Medications: Home Meds Cyproheptadine HCl 4 mg PO TID 12/09/20 [History] fluvoxaMINE Maleate [Fluvoxamine Maleate] 50 mg PO BEDTIME 12/09/20 [History] Warfarin [Coumadin] 7.5 mg PO DAILY 30 Days #30 tab 12/13/20 [Rx] Enoxaparin [Lovenox] 100 mg SQ BID 5 Days #10 ml 12/16/20 [Rx] Patient Handouts: Hypoxia, COVID-19 Frequently Asked Questions, COVID-19 Vaccine Information, Warfarin Information, Prothrombin Time, International Normalized Ratio Test, Pulmonary Embolism, COVID-19: How to Protect Yourself and Others - CDC, Venous Thromboembolism Prevention Referrals: Emir Kovacs MD [Physician] - 12/17/20 4:00 pm - Discharge Summary/Plan Comment DC Time >30 min.: Yes Total # of Minutes for Discharge Time: 45 - Review of Systems General: Denies: Fever, Fatigue HEENT: Denies: Sore Throat Pulmonary: Denies: Shortness of Breath, Pleuritic Chest Pain, Cough, Hemoptysis, Wheezing Cardiovascular: Denies: Chest Pain, Palpitations, Dyspnea on Exertion, Lightheadedness Gastrointestinal: Denies: Abdominal Pain, Constipation, Decreased Appetite, Diarrhea, Nausea, Vomiting Genitourinary: Denies: Dysuria Musculoskeletal: Denies: Leg Pain Skin: Denies: Bruising, Rash Neurological: Denies: Confusion, Dizziness, Headache, Numbness, Paresthesia, Seizure, Syncope - Patient Data Vitals - Most Recent: Last Vital Signs Temp 97.5 F 12/13/20 08:00 Pulse 86 12/13/20 08:00 Resp 16 12/13/20 08:00 BP 115/80 12/13/20 08:00 Pulse Ox 93 L 12/13/20 08:00 Weight - Most Recent: 105.097 kg I&O - Last 24 hours: Intake & Output 12/12/20 12/13/20 12/13/20 22:59 06:59 14:59 Intake Total 1500 940 Output Total 0 Balance 1500 940 Lab Results - Last 24 hrs: Laboratory Results - last 24 hr 12/13/20 12/13/20 Range/Units 05:40 05:40 WBC 10.65 (4.0-11.0) K/uL RBC 4.70 (4.50-5.90) M/uL Hgb 13.8 (13.0-17.0) g/dL Hct 41.0 (38.0-50.0) % MCV 87.2 (80.0-98.0) fL MCH 29.4 (27.0-32.0) pg MCHC 33.7 (31.0-37.0) g/dL RDW Std Deviation 42.6 (28.0-62.0) fl RDW Coeff of Dante 13 (11.0-15.0) % Plt Count 204 (150-400) K/uL MPV 11.30 (7.40-12.00) fL Neut % (Auto) 79.6 (48.0-80.0) % Lymph % (Auto) 13.1 L (16.0-40.0) % [place] % (Auto) 6.1 (0.0-15.0) % Eos % (Auto) 1.0 (0.0-7.0) % Baso % (Auto) 0.2 (0.0-1.5) % Neut # (Auto) 8.5 H (1.4-5.7) K/uL Lymph # (Auto) 1.4 (0.6-2.4) K/uL [place] # (Auto) 0.7 (0.0-0.8) K/uL Eos # (Auto) 0.1 (0.0-0.7) K/uL Baso # (Auto) 0.0 (0.0-0.1) K/uL Nucleated RBC % 0.0 /100WBC Nucleated RBCs # 0 K/uL INR 1.72 Med Orders - Current: Current Medications Dexamethasone (Dexamethasone 4 Mg Tab) 6 mg PO Q24H [facility] Last Admin: 12/12/20 14:14 Dose: 6 mg Documented by: Enoxaparin Sodium (Enoxaparin 150 Mg/1 Ml Syringe) 150 mg SUBCUT Q24H [facility] Last Admin: 12/13/20 12:02 Dose: 150 mg Documented by: Pantoprazole Sodium (Pantoprazole 40 Mg Tab.Cr) 40 mg PO DAILY [facility] Last Admin: 12/13/20 08:56 Dose: 40 mg Documented by: Sodium Chloride (Sodium Chloride 0.9% 10 Ml Syringe) 10 ml FLUSH ASDIRECTED PRN PRN Reason: Keep Vein Open Last Admin: 12/09/20 11:33 Dose: 10 ml Documented by: Sodium Chloride (Sodium Chloride 0.9% 2.5 Ml Syringe) 2.5 ml FLUSH ASDIRECTED PRN PRN Reason: Keep Vein Open Last Admin: 12/09/20 11:33 Dose: 2.5 ml Documented by: Warfarin Sodium (Warfarin Sliding Scale) 1 each PO DAILY@1400 [facility]; Protocol Last Admin: 12/12/20 14:13 Dose: Not Given Documented by: Discontinued Medications Enoxaparin Sodium (Enoxaparin 100 Mg/1 Ml Syringe) 100 mg SUBCUT Q12H [facility] Last Admin: 12/12/20 23:20 Dose: 100 mg Documented by: Heparin Sodium (Porcine) (Heparin Sodium 5,000 Units/Ml Vial) 5,000 units IVPUSH .BOLUS ONE Stop: 12/09/20 12:29 Last Admin: 12/09/20 13:08 Dose: 5,000 units Documented by: Heparin Sodium/Sodium Chloride (Heparin 25,000 Units In 1/2 Ns 500 Ml) 500 mls @ 38.16 mls/hr IV TITRATE [facility]; Protocol Last Admin: 12/10/20 05:33 Dose: 15 units/kg/hr, 31.8 mls/hr Documented by: Remdesivir 200 mg/ Sodium (Chloride) 250 mls @ 250 mls/hr IV ONETIME ONE Stop: 12/09/20 13:07 Last Admin: 12/09/20 13:43 Dose: Not Given Documented by: Lactated Ringer's (Ringers, Lactated) 1,000 mls @ 999 mls/hr IV .BOLUS ONE Stop: 12/10/20 09:43 Last Admin: 12/10/20 08:58 Dose: 999 mls/hr Documented by: Iopamidol (Iopamidol 755 Mg/Ml 500 Ml Multipack Bottle) 100 ml IVPUSH ONETIME ONE Stop: 12/09/20 12:55 Last Admin: 12/09/20 12:56 Dose: 100 ml Documented by: Warfarin Sodium (Warfarin Sliding Scale) 0 each PO DAILY@1400 [facility]; Protocol Last Admin: 12/10/20 15:29 Dose: Not Given Documented by: Warfarin Sodium (Warfarin 10 Mg Tab) 10 mg PO 12/10/20@1200 [facility] Stop: 12/10/20 12:01 Last Admin: 12/10/20 12:13 Dose: 10 mg Documented by: Warfarin Sodium (Warfarin 5 Mg Tab) 0 mg PO .Pharmacy To Dose [facility] Warfarin Sodium (Warfarin 10 Mg Tab) 10 mg PO DAILY@1400 ONE Stop: 12/11/20 14:01 Last Admin: 12/11/20 13:43 Dose: 10 mg Documented by: Warfarin Sodium (Warfarin 10 Mg Tab) 10 mg PO DAILY@1400 [facility] Stop: 12/12/20 14:01 Last Admin: 12/12/20 14:13 Dose: 10 mg Documented by: Warfarin Sodium (Warfarin 10 Mg Tab) 10 mg PO 12/13/20@1100 [facility] Stop: 12/13/20 11:01 Last Admin: 12/13/20 12:03 Dose: 10 mg Documented by: - Exam General: Reports: Alert, Oriented, Cooperative, No Acute Distress HEENT: Reports: Pupils Equal, Pupils Reactive Neck: Reports: Supple, Trachea Midline Lungs: Reports: Decreased Breath Sounds Cardiovascular: Reports: Regular Rate, Regular Rhythm, No Murmurs GI/Abdominal Exam: Normal Bowel Sounds, Soft, Non-Tender Back Exam: Reports: Normal Inspection Extremities: Normal Inspection, Normal Range of Motion, Non-Tender, No Pedal Edema. No: Christiano's Sign, Leg Pain, Redness Skin: Reports: Warm, Dry, Intact. Denies: Rash, Ecchymosis Neurological: Reports: No New Focal Deficit <Parveen,Hooria - Last Filed: 12/17/20 13:14> Discharge Summary - Hospital Course Free Text/Narrative:: I have seen and evaluated the patient and agree with the residents note unless specified in my note - Referral to Home Health Primary Care Physician: Evelyne Loaiza MD - Discharge Diagnosis/Problem(s) (1) COVID-19 virus infection SNOMED Code(s): 729658840 ICD Code: U07.1 - COVID-19 Status: Acute (2) DVT (deep venous thrombosis) SNOMED Code(s): 593353603 ICD Code: I82.409 - ACUTE EMBOLISM AND THOMBOS UNSP DEEP VN UNSP LOWER EXTREMITY Status: Acute Qualifiers: DVT location: lower extremity Affected thrombotic vein of extremity: femoral Chronicity: acute Laterality: left Qualified Code(s): I82.412 - Acute embolism and thrombosis of left femoral vein (3) Hypoxia SNOMED Code(s): 658419434 ICD Code: R09.02 - HYPOXEMIA Status: Acute (4) Pulmonary embolism SNOMED Code(s): 75726810 ICD Code: I26.99 - OTHER PULMONARY EMBOLISM WITHOUT ACUTE COR PULMONALE Status: Acute - Patient Data Vitals - Most Recent: Last Vital Signs Temp 36.4 C 12/13/20 12:00 Pulse 85 12/13/20 12:00 Resp 16 12/13/20 12:00 BP 115/70 12/13/20 12:00 Pulse Ox 93 L 12/13/20 12:00 Med Orders - Current: Current Medications Discontinued Medications Dexamethasone (Dexamethasone 4 Mg Tab) 6 mg PO Q24H [facility] Last Admin: 12/12/20 14:14 Dose: 6 mg Documented by: Enoxaparin Sodium (Enoxaparin 100 Mg/1 Ml Syringe) 100 mg SUBCUT Q12H [facility] Last Admin: 12/12/20 23:20 Dose: 100 mg Documented by: Enoxaparin Sodium (Enoxaparin 150 Mg/1 Ml Syringe) 150 mg SUBCUT Q24H [facility] Last Admin: 12/13/20 12:02 Dose: 150 mg Documented by: Heparin Sodium (Porcine) (Heparin Sodium 5,000 Units/Ml Vial) 5,000 units IVPUSH .BOLUS ONE Stop: 12/09/20 12:29 Last Admin: 12/09/20 13:08 Dose: 5,000 units Documented by: Heparin Sodium/Sodium Chloride (Heparin 25,000 Units In 1/2 Ns 500 Ml) 500 mls @ 38.16 mls/hr IV TITRATE [facility]; Protocol Last Admin: 12/10/20 05:33 Dose: 15 units/kg/hr, 31.8 mls/hr Documented by: Remdesivir 200 mg/ Sodium (Chloride) 250 mls @ 250 mls/hr IV ONETIME ONE Stop: 12/09/20 13:07 Last Admin: 12/09/20 13:43 Dose: Not Given Documented by: Lactated Ringer's (Ringers, Lactated) 1,000 mls @ 999 mls/hr IV .BOLUS ONE Stop: 12/10/20 09:43 Last Admin: 12/10/20 08:58 Dose: 999 mls/hr Documented by: Iopamidol (Iopamidol 755 Mg/Ml 500 Ml Multipack Bottle) 100 ml IVPUSH ONETIME ONE Stop: 12/09/20 12:55 Last Admin: 12/09/20 12:56 Dose: 100 ml Documented by: Pantoprazole Sodium (Pantoprazole 40 Mg Tab.Cr) 40 mg PO DAILY [facility] Last Admin: 12/13/20 08:56 Dose: 40 mg Documented by: Sodium Chloride (Sodium Chloride 0.9% 10 Ml Syringe) 10 ml FLUSH ASDIRECTED PRN PRN Reason: Keep Vein Open Last Admin: 12/09/20 11:33 Dose: 10 ml Documented by: Sodium Chloride (Sodium Chloride 0.9% 2.5 Ml Syringe) 2.5 ml FLUSH ASDIRECTED PRN PRN Reason: Keep Vein Open Last Admin: 12/09/20 11:33 Dose: 2.5 ml Documented by: Warfarin Sodium (Warfarin Sliding Scale) 0 each PO DAILY@1400 [facility]; Protocol Last Admin: 12/10/20 15:29 Dose: Not Given Documented by: Warfarin Sodium (Warfarin 10 Mg Tab) 10 mg PO 12/10/20@1200 [facility] Stop: 12/10/20 12:01 Last Admin: 12/10/20 12:13 Dose: 10 mg Documented by: Warfarin Sodium (Warfarin Sliding Scale) 1 each PO DAILY@1400 [facility]; Protocol Last Admin: 12/12/20 14:13 Dose: Not Given Documented by: Warfarin Sodium (Warfarin 5 Mg Tab) 0 mg PO .Pharmacy To Dose [facility] Warfarin Sodium (Warfarin 10 Mg Tab) 10 mg PO DAILY@1400 ONE Stop: 12/11/20 14:01 Last Admin: 12/11/20 13:43 Dose: 10 mg Documented by: Warfarin Sodium (Warfarin 10 Mg Tab) 10 mg PO DAILY@1400 [facility] Stop: 12/12/20 14:01 Last Admin: 12/12/20 14:13 Dose: 10 mg Documented by: Warfarin Sodium (Warfarin 10 Mg Tab) 10 mg PO 12/13/20@1100 [facility] Stop: 12/13/20 11:01 Last Admin: 12/13/20 12:03 Dose: 10 mg Documented by:
== END 2020-12-13 12:30 | disposition home or self-care (01) | DRG 176 ==
LOC: MW.ED 09:41 → MW.ICU 12:48 → MW.MS 12-10 14:38
PROVIDERS: ADMIT Internal Medicine; ATTEND Internal Medicine
PROC: 3E0DX3Z Introduction of Anti-inflammatory into Mouth and Pharynx, External Approach (ICD-10-PCS; principal; 2020-12-09)
DX: I26.99 Other pulmonary embolism without acute cor pulmonale (principal); I82.412 Acute embolism and thrombosis of left femoral vein; R09.02 Hypoxemia; H54.7 Unspecified visual loss; Z20.822 Contact with and (suspected) exposure to COVID-19; Z79.01 Long term (current) use of anticoagulants; Z86.16 Personal history of COVID-19; Z79.899 Other long term (current) drug therapy; Z79.52 Long term (current) use of systemic steroids; Z88.7 Allergy status to serum and vaccine
CPT/HCPCS: 36415; 70450; 70450-26; 71275; 71275-26; 80048; 80053; 81003; 82248; 83735; 84484; 85025; 85027; 85610; 85730; 86140; 93005; 93306; 99291; A9270-GY; J1644; J1650; J7120; J8540; Q9967; U0002

== ENCOUNTER 2020-12-16 08:23 | Emergency (ER) | payer BC ==
[2020-12-16] MEDS ORDERED: Sodium Chloride 0.9% 10 ML Syringe FLUSH PRN (08:47)
[2020-12-16] MEDS ORDERED: Sodium Chloride 0.9% 2.5 ML Syringe FLUSH PRN (08:47)
[2020-12-16] MEDS ORDERED: Ondansetron 4 MG/2 ML SDV IVPUSH ONE (09:04)
[2020-12-16] MEDS ORDERED: Sodium Chloride 0.9% 1,000 ML IV ONE (09:04)
[2020-12-16] MEDS ORDERED: Ondansetron 4 MG/2 ML SDV ONE (09:05)
--- NOTE | 2020-12-16 09:17 | EDM.PDOC ---
ED HPI GENERAL MEDICAL PROBLEM - General Chief Complaint: General Stated Complaint: SPOUSE STATED BLOOD CLOTS Time Seen by Provider: 12/16/20 08:29 - History of Present Illness INITIAL COMMENTS - FREE TEXT/NARRATIVE: 50-year-old male with history of prediabetes and recent Covid as well as known bilateral PEs presents with syncope. Patient was sitting at the breakfast table. He developed significant lightheadedness as well as sweating. He put his head down on the table and then woke up on the floor. Patient's witnessed the episode she states that he put his head down on the table he seemed to have abnormal grunting sounding breathing she leaned him back and he was nonresponsive. She went to get her phone call 911 and during the 911 call he again became responsive and started speaking to her. He did have a few nonrhythmic jerks during the episode he did not bite his tongue no urinary or bowel incontinence no prior history of seizures. Patient been compliant with his warfarin he is also taking to one of her medications for his recent COVID- 19. He is no longer taking hydroxychloroquine. Patient is currently on warfarin for bilateral PEs. He was previously started on Xarelto for DVT that occurred in the setting of his COVID-19 which was diagnosed around 3 weeks ago. He has since been off quarantine because he had a subsequent bilateral PEs while on Xarelto he was switched Coumadin during a brief hospitalization and has been maintained on that since then. He has no prior cardiac history. - Related Data Allergies Allergy/AdvReac Type Severity Reaction Status Date / Time Pertussis Vaccines Allergy Anaphylactic Verified 12/16/20 08:27 Shock Home Meds: Home Meds Cyproheptadine HCl 4 mg PO TID 12/09/20 [History] fluvoxaMINE Maleate [Fluvoxamine Maleate] 50 mg PO BEDTIME 12/09/20 [History] Warfarin [Coumadin] 7.5 mg PO DAILY 30 Days #30 tab 12/13/20 [Rx] Enoxaparin [Lovenox] 100 mg SQ BID 5 Days #10 ml 12/16/20 [Rx] Past Medical History - Past Health History Medical/Surgical History: Denies Medical/Surgical History HEENT History: Reports: Impaired Vision Other HEENT History: pt wears contacts Cardiovascular History: Reports: Other (See Below) Other Cardiovascular History: DVT Respiratory History: Reports: None Other Respiratory History: covid Gastrointestinal History: Reports: None Genitourinary History: Reports: None Musculoskeletal History: Reports: None Neurological History: Reports: None Psychiatric History: Reports: None Endocrine/Metabolic History: Reports: Other (See Below) Other Endocrine/Metabolic History: pt stated he is "borderline diabetic" and manages with diet 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 Hematologic History: Reports: None Immunologic History: Reports: None Oncologic (Cancer) History: Reports: None Dermatologic History: Reports: None - Infectious Disease History Infectious Disease History: Reports: Novel Coronavirus Other Infectious Disease History: current covid infection diagnosed 11/27/2020 Social & Family History - Family History Family Medical History: No Pertinent Family History - Caffeine Use Caffeine Use: Reports: Coffee - Recreational Drug Use Recreational Drug Use: No ED ROS GENERAL - Review of Systems Review Of Systems: See Below Free Text/Narrative/Comment: General: No fever. Skin: No rash. Eyes: No vision problems. ENT: No sore throat. Neck: No neck stiffness. Respiratory: No shortness of breath. Cardiac: Per HPI. Gastrointestinal: No nausea, vomiting or abdominal pain. Urinary: No dysuria. Musculoskeletal: No myalgias/arthralgias. Neurologic: No headache. ED EXAM, GENERAL - Physical Exam Exam: See Below Free Text/Narrative:: General Appearance: No acute distress, appears comfortable Skin: No rash HEENT: Normocephalic/atraumatic, sclera anicteric, mucous membranes moist Neck: Normal range of motion Chest and Lungs: Bilateral breath sounds, clear to auscultation Cardiovascular: Regular rate and rhythm, no murmur Abdomen: Soft, non-tender Back: Normal Musculoskeletal: No edema or tenderness Neurologic: Awake, alert, no obvious deficits, moving all extremities Psychiatric: Appropriate, cooperative #1 Interpretation EKG Date: 12/16/20 Time: 09:15 EKG Interpretation Comments: Normal sinus rhythm rate of 93 normal axis and intervals no acute ischemia QTC 442 normal EKG Course - Vital Signs Last Recorded V/S: Last Vital Signs Temp 96.8 F L 12/16/20 08:25 Pulse 64 12/16/20 09:05 Resp 18 12/16/20 08:25 BP 102/67 12/16/20 09:05 Pulse Ox 95 12/16/20 09:05 - Orders/Labs/Meds Orders: Active Orders 24 hr Category Date Time Status Sodium Chloride 0.9% [Saline Flush] Med 12/16/20 08:47 Active 10 ml FLUSH ASDIRECTED PRN Sodium Chloride 0.9% [Saline Flush] Med 12/16/20 08:47 Active 2.5 ml FLUSH ASDIRECTED PRN Saline Lock Insert [OM.PC] Stat Oth 12/16/20 08:47 Ordered Medication Orders Sodium Chloride (Sodium Chloride 0.9% 10 Ml Syringe) 10 ml FLUSH ASDIRECTED PRN PRN Reason: Keep Vein Open Last Admin: 12/16/20 08:53 Dose: 10 ml Documented by: JUSTA Sodium Chloride (Sodium Chloride 0.9% 2.5 Ml Syringe) 2.5 ml FLUSH ASDIRECTED PRN PRN Reason: Keep Vein Open Last Admin: 12/16/20 08:53 Dose: 2.5 ml Documented by: JUSTA Labs: Laboratory Tests 12/16/20 12/16/20 12/16/20 Range/Units 08:57 08:57 08:57 WBC 9.39 (4.0-11.0) K/uL RBC 4.99 (4.50-5.90) M/uL Hgb 14.8 (13.0-17.0) g/dL Hct 44.1 (38.0-50.0) % MCV 88.4 (80.0-98.0) fL MCH 29.7 (27.0-32.0) pg MCHC 33.6 (31.0-37.0) g/dL RDW Std Deviation 44.9 (28.0-62.0) fl RDW Coeff of Dante 14 (11.0-15.0) % Plt Count 170 (150-400) K/uL MPV 10.80 (7.40-12.00) fL Neut % (Auto) 65.4 (48.0-80.0) % Lymph % (Auto) 21.0 (16.0-40.0) % [place] % (Auto) 7.3 (0.0-15.0) % Eos % (Auto) 5.9 (0.0-7.0) % Baso % (Auto) 0.4 (0.0-1.5) % Neut # (Auto) 6.1 H (1.4-5.7) K/uL Lymph # (Auto) 2.0 (0.6-2.4) K/uL [place] # (Auto) 0.7 (0.0-0.8) K/uL Eos # (Auto) 0.6 (0.0-0.7) K/uL Baso # (Auto) 0.0 (0.0-0.1) K/uL Nucleated RBC % 0.0 /100WBC Nucleated RBCs # 0 K/uL INR 1.90 Sodium 135 L (136-148) mmol/L Potassium 3.9 (3.5-5.1) mmol/L Chloride 99 (98-107) mmol/L Carbon Dioxide 27.8 (21.0-32.0) mmol/L BUN 20 H (7.0-18.0) mg/dL Creatinine 0.9 (0.8-1.3) mg/dL Est Cr Clr Drug Dosing 103.42 mL/min Estimated GFR (MDRD) > 60.0 ml/min Glucose 189 H (74-106) mg/dL Calcium 8.7 (8.5-10.1) mg/dL Magnesium 2.3 (1.8-2.4) mg/dL Total Bilirubin 0.4 (0.2-1.0) mg/dL AST 19 (15-37) IU/L ALT 92 H (14-63) IU/L Alkaline Phosphatase 54 (46-116) U/L Troponin I < 0.050 (0.000-0.056) ng/mL B-Natriuretic Peptide (<100) PG/ML Total Protein 7.0 (6.4-8.2) g/dL Albumin 2.9 L (3.4-5.0) g/dL Globulin 4.1 H (2.6-4.0) g/dL Albumin/Globulin Ratio 0.7 L (0.9-1.6) 12/16/20 Range/Units 08:57 WBC (4.0-11.0) K/uL RBC (4.50-5.90) M/uL Hgb (13.0-17.0) g/dL Hct (38.0-50.0) % MCV (80.0-98.0) fL MCH (27.0-32.0) pg MCHC (31.0-37.0) g/dL RDW Std Deviation (28.0-62.0) fl RDW Coeff of Dante (11.0-15.0) % Plt Count (150-400) K/uL MPV (7.40-12.00) fL Neut % (Auto) (48.0-80.0) % Lymph % (Auto) (16.0-40.0) % [place] % (Auto) (0.0-15.0) % Eos % (Auto) (0.0-7.0) % Baso % (Auto) (0.0-1.5) % Neut # (Auto) (1.4-5.7) K/uL Lymph # (Auto) (0.6-2.4) K/uL [place] # (Auto) (0.0-0.8) K/uL Eos # (Auto) (0.0-0.7) K/uL Baso # (Auto) (0.0-0.1) K/uL Nucleated RBC % /100WBC Nucleated RBCs # K/uL INR Sodium (136-148) mmol/L Potassium (3.5-5.1) mmol/L Chloride (98-107) mmol/L Carbon Dioxide (21.0-32.0) mmol/L BUN (7.0-18.0) mg/dL Creatinine (0.8-1.3) mg/dL Est Cr Clr Drug Dosing mL/min Estimated GFR (MDRD) ml/min Glucose (74-106) mg/dL Calcium (8.5-10.1) mg/dL Magnesium (1.8-2.4) mg/dL Total Bilirubin (0.2-1.0) mg/dL AST (15-37) IU/L ALT (14-63) IU/L Alkaline Phosphatase (46-116) U/L Troponin I (0.000-0.056) ng/mL B-Natriuretic Peptide < 2 (<100) PG/ML Total Protein (6.4-8.2) g/dL Albumin (3.4-5.0) g/dL Globulin (2.6-4.0) g/dL Albumin/Globulin Ratio (0.9-1.6) Meds: Medications Generic Name Dose Route Start Last Admin Trade Name Freq PRN Reason Stop Dose Admin Sodium Chloride 10 ml 12/16/20 08:47 12/16/20 08:53 Sodium Chloride 0.9% 10 Ml Syringe FLUSH 10 ml ASDIRECTED PRN Administration Keep Vein Open Sodium Chloride 2.5 ml 12/16/20 08:47 12/16/20 08:53 Sodium Chloride 0.9% 2.5 Ml Syringe FLUSH 2.5 ml ASDIRECTED PRN Administration Keep Vein Open Discontinued Medications Generic Name Dose Route Start Last Admin Trade Name Nicolette PRN Reason Stop Dose Admin Sodium Chloride 1,000 mls @ 999 mls/hr 12/16/20 09:04 12/16/20 09:06 Normal Saline IV 12/16/20 10:04 999 mls/hr .Bolus ONE Administration Ondansetron HCl 4 mg 12/16/20 09:04 12/16/20 09:06 Ondansetron 4 Mg/2 Ml Sdv IVPUSH 12/16/20 09:05 4 mg ONETIME ONE Administration Ondansetron HCl Confirm 12/16/20 09:05 12/16/20 09:08 Ondansetron 4 Mg/2 Ml Sdv Administered 12/16/20 09:06 Not Given Dose 4 mg .ROUTE .STK-MED ONE Departure - Departure Time of Disposition: 10:13 Disposition: Home, Self-Care 01 Condition: Good Clinical Impression: Syncope - Discharge Information *PRESCRIPTION DRUG MONITORING PROGRAM REVIEWED*: Not Applicable *COPY OF PRESCRIPTION DRUG MONITORING REPORT IN PATIENT PIERRE: Not Applicable Prescriptions: Enoxaparin [Lovenox] 100 mg SQ BID 5 Days #10 ml Instructions: Syncope, [id number], Near-Syncope, [id number] Referrals: Emir Kovacs MD [Primary Care Provider] - Forms: ED Department Discharge Additional Instructions: Your INR today was subtherapeutic at 1.9. For this reason you were given a dose of Lovenox this morning. You will need to continue the Lovenox until your Coumadin level is appropriately therapeutic. Please be sure to keep your appointment tomorrow morning for your repeat INR and your follow-up visit with your primary care doctor. If you have worsening symptoms during the day today or any other new symptoms that concern you please call your doctor or return to the ER. The following information is given to patients seen in the emergency department who are being discharged to home. This information is to outline your options for follow-up care. We provide all patients seen in our emergency department with a follow-up referral. The need for follow-up, as well as the timing and circumstances, are variable depending upon the specifics of your emergency department visit. If you don't have a primary care physician on staff, we will provide you with a referral. We always advise you to contact your personal physician following an emergency department visit to inform them of the circumstance of the visit and for follow-up with them and/or the need for any referrals to a consulting specialist. The emergency department will also refer you to a specialist when appropriate. This referral assures that you have the opportunity for follow-up care with a specialist. All of these measure are taken in an effort to provide you with optimal care, which includes your follow-up. Under all circumstances we always encourage you to contact your private physician who remains a resource for coordinating your care. When calling for follow-up care, please make the office aware that this follow-up is from your recent emergency room visit. If for any reason you are refused follow-up, please contact the [facility] Emergency Department at and asked to speak to the emergency department charge nurse. Sepsis Event Note (ED) - Evaluation Sepsis Screening Result: No Definite Risk - Focused Exam Vital Signs: Vital Signs Temp Pulse Resp BP Pulse Ox 12/16/20 09:05 64 102/67 95 12/16/20 08:54 91 112/77 96 12/16/20 08:25 96.8 F L 92 18 124/81 96 - My Orders Last 24 Hours: My Active Orders 12/16/20 08:47 Sodium Chloride 0.9% [Saline Flush] 10 ml FLUSH ASDIRECTED PRN Sodium Chloride 0.9% [Saline Flush] 2.5 ml FLUSH ASDIRECTED PRN Saline Lock Insert [OM.PC] Stat - Assessment/Plan Last 24 Hours: My Active Orders 12/16/20 08:47 Sodium Chloride 0.9% [Saline Flush] 10 ml FLUSH ASDIRECTED PRN Sodium Chloride 0.9% [Saline Flush] 2.5 ml FLUSH ASDIRECTED PRN Saline Lock Insert [OM.PC] Stat Assessment:: 50-year-old male presenting with an episode of syncope. Seizure considered but the lack of a postictal state the lack of any tongue injury the lack of any urinary or bowel incontinence and the lack of prior history of seizure all argue strongly against this. The preceding lightheadedness and diaphoresis are also consistent with syncope. New right heart failure secondary to his bilateral PEs is a consideration he is not clinically in heart failure. However, chest x-ray troponin and BNP are pending. INR will be checked as well to ensure that he is therapeutic. Arrhythmia is a possibility in CBC, CMP, magnesium have all been ordered. Patient will be maintained on cardiac telemetry as well. Shortly after my initial evaluation the patient became again lightheaded and near syncopal. He was quite nauseous but did not vomit. He was noted to be bradycardic and mildly hypotensive on the monitor. He was given Zofran and IV fluids. The episode passed relatively quickly and he did not have true syncope. Labs and x-ray pending. 1005: Patient feels well at this time. No additional episodes. Labs are normal chest x-ray consistent with his recent Covid. No signs of right heart strain. Patient's vital signs right now are good. Precise etiology of the bradycardia near syncope 1012: Patient is subtherapeutic on his INR at 1.9. Patient was not discharged on Lovenox bridging. He was 1.72 at time of discharge. Patient does have an appointment tomorrow with his PCP. In the meantime we will give him a dose of Lovenox here and write a prescription for a few days of bridging Lovenox to ensure that he is adequately therapeutic until his INR rises to the appropriate level. Additional Coumadin titration will be deferred to his primary care provi ernestina.
--- NOTE | 2020-12-16 09:28 | CR ---
INDICATION: Syncope. COMPARISON: CT 09 December 2020. TECHNIQUE: Patchy and reticular peripheral airspace opacities. No pneumothorax or effusion. Pulmonary vascularity appears normal. IMPRESSION: Stable peripheral airspace opacities may be atypical bilateral infectious pneumonia or cryptogenic organizing pneumonia. Dictated by Fausto Persaud MD @ 12/16/2020 9:26:37 AM (Electronically Signed)
[2020-12-16 09:32] LABS: BLOOD UREA NITROGEN,BUN 20 mg/dL (7.0-18.0); CARBON DIOXIDE,CO2 27.8 mmol/L (21.0-32.0); CHLORIDE,CL 99 mmol/L (98-107); GLUCOSE RANDOM 189 mg/dL (74-106); POTASSIUM,K 3.9 mmol/L (3.5-5.1); SODIUM,NA 135 mmol/L (136-148)
[2020-12-16] MEDS ORDERED: Enoxaparin 100 MG/1 ML Syringe SUBCUT ONE (10:15)
== END 2020-12-16 10:35 | disposition home or self-care (01) ==
LOC: MW.ED 08:23
DX: R55 Syncope and collapse (principal); Z86.16 Personal history of COVID-19
CPT/HCPCS: 36415; 71045; 80053; 83735; 83880; 84484; 85025; 85610; 93005; 96372; 96374; 99284; J1650; J2405; J7030

== ENCOUNTER 2022-01-30 14:35 | Emergency (ER) | payer OTHER | END 2022-01-30 16:20 | disposition home or self-care (01) | LOC: MW.ED 14:35 | DX: S49.91XA Unspecified injury of right shoulder and upper arm, initial encounter (principal); Z88.7 Allergy status to serum and vaccine; Z79.899 Other long term (current) drug therapy; Z86.16 Personal history of COVID-19; Z79.01 Long term (current) use of anticoagulants; W00.9XXA Unspecified fall due to ice and snow, initial encounter | CPT/HCPCS: 73030-26-RT; 73030-RT; 99283 ==

== ENCOUNTER 2022-03-12 09:23 | Day surgery (SDC) | payer OTHER, BC ==
[~2022-03-12 09:23] MED LIST: Lactated Ringers 1,000 ML IV SCH; ceFAZolin 2 GM in Premix Bag 1 BAG IV SCH
[2022-03-12] MEDS ORDERED: fentaNYL 50 MCG/ML SDV IVPUSH PRN (10:05)
[2022-03-12] MEDS ORDERED: Morphine 2 MG/ML SYRINGE IVPUSH PRN (10:05)
[2022-03-12] MEDS ORDERED: Naloxone 0.4 MG/ML SDV IVPUSH PRN (10:05)
[2022-03-12] MEDS ORDERED: HYDROmorphone 1 MG/ML Syringe IVPUSH PRN (10:05)
[2022-03-12] MEDS ORDERED: Albuterol 0.083% 2.5 MG/3 ML Neb Soln NEB PRN (10:05)
[2022-03-12] MEDS ORDERED: Ondansetron 4 MG/2 ML SDV IVPUSH PRN (10:05)
[2022-03-12] MEDS ORDERED: Metoclopramide 10 MG/2 ML SDV IVPUSH PRN (10:05)
[2022-03-12] MEDS ORDERED: Bupivacaine 0.5% 30 ML SDV ONE (10:07)
[2022-03-12] MEDS ORDERED: fentaNYL 100 MCG/2 ML SDV ONE ×2 (10:40→11:11)
[2022-03-12] MEDS ORDERED: Midazolam 1 MG/ML 2 ML SDV ONE (10:40)
[2022-03-12] MEDS ORDERED: Sugammadex Sodium 200 MG/2 ML VIAL ONE (11:11)
[2022-03-12] MEDS ORDERED: Dexamethasone 4 MG/ML 5 ML MDV ONE (11:11)
[2022-03-12] MEDS ORDERED: Propofol 200 MG/20 ML SDV ONE (11:11)
[2022-03-12] MEDS ORDERED: Ondansetron 4 MG/2 ML SDV ONE (11:11)
[2022-03-12] MEDS ORDERED: Lidocaine 2% 5 ML SDV ONE (11:11)
[2022-03-12] MEDS ORDERED: Ketorolac 30 MG/ML SDV ONE (11:11)
[2022-03-12] MEDS ORDERED: Rocuronium 50 MG/5 ML Vial ONE (11:12)
[2022-03-12] MEDS ORDERED: Lidocaine 1% 5 ML VIAL ONE (11:12)
[2022-03-12] MEDS ORDERED: Lidocaine 1% with EPINEPHrine 1:100,000 10 ML MDV ONE (11:25)
[2022-03-12] MEDS ORDERED: ceFAZolin 1 GM Vial ONE (12:02)
[2022-03-12] MEDS ORDERED: EPINEPHrine 1 MG/1 ML Amp ONE ×2 (12:13→12:28)
== END 2022-03-12 15:00 | disposition home or self-care (01) ==
LOC: MW.SDS 09:23
PROVIDERS: ATTEND Orthopaedic Surgery
DX: M75.121 Complete rotator cuff tear or rupture of right shoulder, not specified as traumatic (principal); U07.1 COVID-19; E66.9 Obesity, unspecified; M79.10 Myalgia, unspecified site; I42.2 Other hypertrophic cardiomyopathy; E11.9 Type 2 diabetes mellitus without complications; Z68.35 Body mass index [BMI] 35.0-35.9, adult; Z79.899 Other long term (current) drug therapy; Z88.7 Allergy status to serum and vaccine; Z79.01 Long term (current) use of anticoagulants; Z98.890 Other specified postprocedural states; Z86.16 Personal history of COVID-19
CPT/HCPCS: 29826; 29827; 64415; 82947; J0171; J0690; J1100; J1885; J2250; J2405; J2704; J3010; J3490; J7120; 01630